=== PATIENT | female | born 1945 | race Caucasian/White ===

== ENCOUNTER → 2019-09-18 13:01 | Outpatient (BNVA) | payer MEDICARE, MEDICAID, SELFPAY | PROVIDERS: Family Provider Electrodiagnostic Medicine; PCP Family Medicine; Visit Provider Nurse Practitioner | DX: F33.0 Major depressive disorder, recurrent, mild (principal) | CPT/HCPCS: 99204 ==

== ENCOUNTER 2019-10-27 08:29 | Outpatient (CLI) | payer MEDICARE, MEDICAID, SELFPAY ==
--- NOTE | 2019-10-27 08:37 | FL_ITS ---
WS: [id number] MODIFIED BARIUM SWALLOW HISTORY: dysphagia FLUOROSCOPY TIME: 1.9 minutes. Modified barium swallow was performed by the speech pathologist. Fluoroscopy was provided with the pa tient in a lateral projection. Multiple food consistencies were provided. Patient swallowed the barium mixtures without difficulty. No aspiration or laryngeal penetration. Bar ium tablet was also swallowed without difficulty. On the lateral projection moderate size hiatal hernia was noted. FL/FL barium swallow modifd 04505 IMPRESSION: No swallowing difficulties. No aspiration or laryngeal penetration. Please see speech therapist report also for recommendations.
== END 2019-10-27 08:30 | disposition home or self-care (01) ==
LOC: RAD 08:35
PROVIDERS: Family Provider Electrodiagnostic Medicine; PCP Family Medicine; Visit Provider Electrodiagnostic Medicine
DX: R13.10 Dysphagia, unspecified (principal)
CPT/HCPCS: 74230; 92611

== ENCOUNTER 2019-10-29 09:23 | Outpatient (CLI) | payer MEDICARE, MEDICAID, SELFPAY ==
--- NOTE | 2019-10-29 09:37 | FL_ITS ---
WS: [id number] FL upper GI w air [id number] REASON FOR EXAM: DYSPHAGIA/HIATAL HERNIA W/REFLUX FLUOROSCOPY TIME: 2 minutes FINDINGS: A large paraesophageal hiatal hernia is noted. Measures 10.2 x 10.3 cm. There is no obstruction seen in the distal esophagus. The stomach showed normal appearance there is no ulcerated areas masses or obstructing lesions. The duodenal C curve and proximal small bowel are all normal. FL/FL upper GI w air [id number] IMPRESSION: A large hiatal hernia.
== END 2019-10-29 09:24 | disposition home or self-care (01) ==
LOC: RAD 09:25
PROVIDERS: Family Provider Electrodiagnostic Medicine; PCP Family Medicine; Visit Provider Electrodiagnostic Medicine
DX: K44.9 Diaphragmatic hernia without obstruction or gangrene (principal); R13.10 Dysphagia, unspecified
CPT/HCPCS: 74246

== ENCOUNTER → 2019-11-13 10:02 | Outpatient (BNVA) | payer MEDICARE, MEDICAID, SELFPAY | PROVIDERS: Family Provider Electrodiagnostic Medicine; PCP Family Medicine; Visit Provider Nurse Practitioner Psychiatric/Mental Health | DX: F33.0 Major depressive disorder, recurrent, mild (principal) | CPT/HCPCS: 99213 ==

== ENCOUNTER → 2020-03-11 07:40 | Outpatient (BNVA) | payer MEDICARE, MEDICAID, SELFPAY | PROVIDERS: Family Provider Electrodiagnostic Medicine; PCP Family Medicine; Visit Provider Nurse Practitioner Psychiatric/Mental Health | DX: F33.0 Major depressive disorder, recurrent, mild (principal) | CPT/HCPCS: 99213 ==

== ENCOUNTER 2020-07-02 14:59 | Outpatient (CLI) | payer MEDICARE, MEDICAID, SELFPAY ==
--- NOTE | 2020-07-02 15:09 | MM_ITS ---
WS: [id number] BILATERAL DIGITAL SCREENING MAMMOGRAPHY WITH CAD CLINICAL INFORMATION: SCREENING HISTORY: Screening mammogram. No current complaints. COMPARISON: TECHNIQUE: Bilateral CC and MLO views. FINDINGS: Scattered fibroglandular densities bilaterally. No suspicious focal mass, asymmetry, calcifications, or architectural distortion. No evidence of malignancy. MM/[place] [id number] IMPRESSION: BI-RADS: 1-Negative FOLLOW UP: 1 Year Follow-up Recommend return to annual screening mammography.
== END 2020-07-02 15:00 | disposition home or self-care (01) ==
LOC: RADSHAW 15:08
PROVIDERS: PCP Electrodiagnostic Medicine; Visit Provider Electrodiagnostic Medicine
DX: Z12.31 Encounter for screening mammogram for malignant neoplasm of breast (principal)
CPT/HCPCS: 77067

== ENCOUNTER 2020-07-08 09:53 | Outpatient (CLI) | payer MEDICARE, MEDICAID, SELFPAY ==
--- NOTE | 2020-07-08 10:22 | XRR_ITS ---
PROCEDURE INFORMATION: Exam: XR Right Knee Exam date and time: 07/08/2020 11:12 AM Age: 74 years old Clinical indication: Pain and injury or trauma; Fall; Blunt trauma; Knee; Right; Injury date: 1 month ago; Additional info: Accidental fall/chronic R knee pain TECHNIQUE: Imaging protocol: XR Right knee. Views: 3 views. COMPARISON: No relevant prior studies available. FINDINGS: Bones/joints: Mild degenerative changes within the medial compartment reflected as mild joint space narrowing. Mild patellofemoral degenerative changes. Possible small joint effusion. Soft tissues: Normal. XR/XR knee RT 3V* [id number] IMPRESSION: 1. Mild degenerative changes most pronounced medially 2. Mild patellofemoral degenerative changes. Possible small joint effusion. Consider MRI if indicated.
== END 2020-07-08 09:54 | disposition home or self-care (01) ==
LOC: RAD 10:18
PROVIDERS: PCP Electrodiagnostic Medicine; Visit Provider Electrodiagnostic Medicine
DX: M25.561 Pain in right knee (principal); W19.XXXA Unspecified fall, initial encounter
CPT/HCPCS: 73562

== ENCOUNTER → 2020-07-15 08:04 | Outpatient (BNVA) | payer MEDICARE, MEDICAID, SELFPAY | PROVIDERS: PCP Electrodiagnostic Medicine; Visit Provider Nurse Practitioner Psychiatric/Mental Health | DX: F33.0 Major depressive disorder, recurrent, mild (principal) | CPT/HCPCS: 99213 ==

== ENCOUNTER → 2020-11-04 08:14 | Outpatient (BNVA) | payer MEDICARE, MEDICAID, SELFPAY | PROVIDERS: PCP Electrodiagnostic Medicine; Visit Provider Nurse Practitioner Psychiatric/Mental Health | DX: F33.0 Major depressive disorder, recurrent, mild (principal) | CPT/HCPCS: 99213 ==

== ENCOUNTER → 2021-01-18 08:15 | Outpatient (BNVA) | payer MEDICARE, MEDICAID, SELFPAY | PROVIDERS: PCP Electrodiagnostic Medicine; Visit Provider Nurse Practitioner Psychiatric/Mental Health | DX: F33.0 Major depressive disorder, recurrent, mild (principal) | CPT/HCPCS: 99213 ==

== ENCOUNTER → 2021-04-11 10:07 | Outpatient (BNVA) | payer MEDICARE, MEDICAID, SELFPAY | PROVIDERS: PCP Electrodiagnostic Medicine; Referring Provider Electrodiagnostic Medicine; Visit Provider Orthopaedic Surgery | DX: M25.561 Pain in right knee (principal); M25.562 Pain in left knee; M17.0 Bilateral primary osteoarthritis of knee | CPT/HCPCS: 73560; 73565 ==

== ENCOUNTER → 2021-04-28 10:50 | Outpatient (BNVA) | payer MEDICARE, MEDICAID, SELFPAY | PROVIDERS: PCP Electrodiagnostic Medicine; Visit Provider Psychiatry & Neurology Psychiatry | DX: F33.0 Major depressive disorder, recurrent, mild (principal) | CPT/HCPCS: 99215 ==

== ENCOUNTER → 2021-06-21 11:24 | Outpatient (BNVA) | payer MEDICARE, MEDICAID, SELFPAY | PROVIDERS: PCP Electrodiagnostic Medicine; Visit Provider Psychiatry & Neurology Psychiatry | DX: F33.0 Major depressive disorder, recurrent, mild (principal) | CPT/HCPCS: 99214 ==

== ENCOUNTER → 2021-07-22 10:17 | Outpatient (BNVA) | payer MEDICARE, MEDICAID, SELFPAY | PROVIDERS: PCP Electrodiagnostic Medicine; Visit Provider Psychiatry & Neurology Psychiatry | DX: F33.0 Major depressive disorder, recurrent, mild (principal) | CPT/HCPCS: 99214 ==

== ENCOUNTER 2021-08-19 10:51 | Outpatient (CLI) | payer MEDICARE, MEDICAID, SELFPAY ==
--- NOTE | 2021-08-19 11:07 | MM_ITS ---
WS: [id number] BILATERAL SCREENING DIGITAL MAMMOGRAM WITH CAD HISTORY: SCREENING COMPARISON: 07/02/2020, 06/06/2019 and 01/05/2016 Bilateral CC and MLO views submitted. Computer aided detection analyzed. Breast composition: There are scattered areas of fibroglandular density. No suspicious masses, microc alcifications or architectural distortion. Stable asymmetries within each breast. MM/[place] [id number] IMPRESSION: BI-RADS: 2-Benign FOLLOW UP: 1 Year Follow-up
== END 2021-08-19 10:52 | disposition home or self-care (01) ==
PROVIDERS: PCP Family Medicine; Visit Provider Family Medicine
DX: Z12.31 Encounter for screening mammogram for malignant neoplasm of breast (principal)
CPT/HCPCS: 77067

== ENCOUNTER → 2022-01-19 13:56 | Outpatient (BNVA) | payer MEDICARE, MEDICAID, SELFPAY | PROVIDERS: PCP Family Medicine; Visit Provider Psychiatry & Neurology Psychiatry | DX: F33.0 Major depressive disorder, recurrent, mild (principal) | CPT/HCPCS: 99214 ==

== ENCOUNTER → 2022-05-01 14:06 | Outpatient (BNVA) | payer MEDICARE, MEDICAID, SELFPAY | PROVIDERS: PCP Family Medicine; Referring Provider Dermatology; Visit Provider Podiatrist Foot & Ankle Surgery | DX: M20.21 Hallux rigidus, right foot (principal) | CPT/HCPCS: 99203 ==

== ENCOUNTER → 2022-05-01 14:12 | Outpatient (BNVA) | payer MEDICARE, MEDICAID, SELFPAY | PROVIDERS: PCP Family Medicine; Referring Provider Dermatology; Visit Provider Podiatrist Foot & Ankle Surgery | DX: M19.071 Primary osteoarthritis, right ankle and foot (principal); M65.871 Other synovitis and tenosynovitis, right ankle and foot | CPT/HCPCS: 73630 ==

== ENCOUNTER → 2022-06-20 09:52 | Outpatient (BNVA) | payer MEDICARE, MEDICAID, SELFPAY | PROVIDERS: Visit Provider Family Medicine | DX: R05.9 Cough, unspecified; R50.9 Fever, unspecified; Z20.822 Contact with and (suspected) exposure to COVID-19 | CPT/HCPCS: 87426 ==

== ENCOUNTER → 2022-07-04 14:01 | Outpatient (BNVA) | payer MEDICARE, MEDICAID, SELFPAY | PROVIDERS: Visit Provider Podiatrist Foot & Ankle Surgery | DX: M79.671 Pain in right foot (principal) | CPT/HCPCS: 99214 ==

== ENCOUNTER 2022-07-13 07:46 | Day surgery (SDC) | payer MEDICARE, MEDICAID, SELFPAY ==
[2022-07-12 14:20] VITALS: BMI 30.9
[2022-07-13] VITALS (7 sets, daily range): BP systolic 133–183; BP diastolic 64–91; PULSE 68–75; RESP 16–18; TEMP 36.4–37.1; O2SAT 95–98
--- NOTE | 2022-07-13 | XR_ITS ---
WS: [id number] Right foot, C-arm fluoroscopy views of the distal right foot, 07/13/2022 Clinical Data: Right first metatarsophalangeal joint arthroplasty with iman Comparison: Right foot, 05/01/2022 Findings: There is an artificial joint inserted into the right great toe MTP joint. XR/XR foot RT 2V [id number] Impression: Right great toe MTP arthroplasty.
--- NOTE | 2022-07-13 | SCC_ITS ---
Procedure done: Right foot first metatarsophalangeal joint arthroplasty with Matt implant CPT 03650 37 seconds of fluoroscopic guidance, for a cumulative dose of 0.569 mGy, was provided to Dr. Smalls by the radiology department. C-arm images of the right foot were saved for the patient's permanent record. [facility]
--- NOTE | 2022-07-13 08:21 | ANES.PREANE2 ---
Pre-Anesthetic Assessment Height/Weight: Height 1.63 m Weight 81.647 kg Temp Pulse Resp BP Pulse Ox O2 Del Method 97.5 F L 70 18 183/91 98 07/13/22 08:09 07/13/22 08:09 07/13/22 08:09 07/13/22 08:09 07/13/22 08:09 07/13/22 08:13 Preop Diagnosis: Right foot hallux rigidus Operation Date: 07/13/22 09:35 Proposed Procedures p Right first metatarsophalangeal joint arthroplasty with iman-implant CPT 56025,M20.21(Right) - Khoa Smalls DPM Familial anesthetic complications: none Was Beta Austin taken within 24 hours: N/A Was Clonidine taken within 24 hours: N/A Last intake: Intake Last Liquid Date 07/12/22 Last Liquid Time 18:00 Last Solid Date 07/12/22 Last Solid Time 18:00 Social No alcohol and No tobacco Exam alert, oriented x 3, clear to auscultation bilaterally and regular rate & rhythm Airway Mallampati: Class II Dentition: full Pulmonary covid last month GI Gastroesophageal Reflux Disease and Hiatal Hernia Gerd only with food - not currently experiencing any GERD Metabolic Thyroid Disease Anesthetic Plan ASA status: 2 Anesthesia: MAC Risk of > 500 ml blood loss (7ml/kg in children): No Medications/Allergies Home Medications Medication Instructions Recorded Confirmed Last Taken Type aspirin 81 mg tablet,delayed 81 mg PO ONCE 09/18/19 07/13/22 07/12/22 History release (Aspir-) celecoxib 100 mg capsule 100 mg PO BID 04/28/21 07/13/22 07/13/22 History levothyroxine 50 mcg capsule 50 mcg PO DAILY 04/28/21 07/13/22 07/13/22 History fluoxetine 20 mg capsule 20 mg PO DAILY 90 days #90 caps 01/30/22 07/13/22 07/12/22 Rx esomeprazole magnesium 40 mg 40 mg PO BID #180 caps 06/20/22 07/13/22 07/12/22 Rx capsule,delayed release (Nexium) alprazolam 1 mg tablet 1 mg PO .qhs 30 days #30 tabs 06/29/22 07/13/22 07/12/22 Rx acetaminophen 325 mg capsule 1,300 mg PO BID 07/12/22 07/13/22 07/12/22 History (Tylenol) amlodipine 10 mg tablet (Norvasc) 20 mg PO DAILY 07/12/22 07/13/22 07/12/22 History conj estrogen-medroxyprogesterone 1 tab PO DAILY 07/12/22 07/13/22 07/12/22 History 0.45 mg-1.5 mg tablet (Prempro) doxepin 10 mg capsule 20 mg PO DAILY 07/12/22 07/13/22 07/12/22 History Allergies Allergy/AdvReac Type Severity Reaction Status Date / Time pantoprazole [From Protonix] Allergy Unknown itching Verified 07/12/22 14:14 clindamycin Allergy Unknown Verified 07/12/22 14:14 [facility] Anesthesia Medical History (Updated 07/11/22 @ 11:20 by Carlota Del Valle DO) Benign essential HTN JESENIA (generalized anxiety disorder) Goes to [facility] History of gastroesophageal reflux (GERD) Underwent Lynx procedure with Dr. Eugene Ludwig at [facility]. History of hiatal hernia Repaired Hypothyroidism Major depressive disorder, recurrent, mild Psychiatric care Surgical History History of tubal ligation Family History Father CAD (coronary artery disease) Mother CAD (coronary artery disease) Brother CAD (coronary artery disease) Sister CAD (coronary artery disease) Other Hypertension Denies family history of Diabetes Clotting disorder Dementia Hyperlipidemia Psychiatric illness Chronic kidney disease (CKD) Suicide Anesthesia complication Bleeding disorder Family history of premature coronary artery disease Lung disease Cancer Stroke Social History Smoking and tobacco status: former smoker Data Anesthesia Cardiac Studies: No Data to Display
[2022-07-13] MEDS: CELEcoxib 200 mg Capsule 400 MG PO (08:42)
[2022-07-13] MEDS: gabapentin 300 mg Capsule PO (08:43)
[2022-07-13] MEDS: sodium chloride 0.9% 1,000 ML 30 ML IV (08:44)
--- NOTE | 2022-07-13 09:52 | W.PM.OPSUD ---
Surgery/Procedure H&P Update DATE OF PROCEDURE: July 13, 2022 DATE H&P PERFORMED: 07/04/22 CHANGES TO PREVIOUS DOCUMENTATION: No changes to previous documentation PREOP DIAGNOSIS: Right foot hallux rigidus PRIMARY INDICATION FOR PROCEDURE: Right foot hallux rigidus PLANNED PROCEDURE: Operation Date: 07/13/22 09:35 Proposed Procedures p Right first metatarsophalangeal joint arthroplasty with iman-implant CPT 68405,M20.21(Right) - Khoa Smalls DPM
[2022-07-13] MEDS: ceFAZolin 2,000 MG in sodium chloride 0.9% (plus) 50 ML 100 MG IV (10:13)
--- NOTE | 2022-07-13 13:37 | ANE.PACU2 ---
Inpatient post-anesthesia follow up: Airway intact: Yes Vital signs: Temperature 97.7 F Pulse Rate 70 Respiratory Rate 18 Blood Pressure 141/73 Pulse Oximetry 95 Oxygen Delivery Me thod Room Air Oxygen Flow Rate 6 Fraction of Inspir ed Oxygen Hydration adequate: Yes Nausea and vomiting: No Pain level: 1 Mental status: Baseline
--- NOTE | 2022-07-13 15:08 | PM.OP ---
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 Khoa Smalls, D.P.M. Estimated blood loss: 5 cc 46 minutes Complications: None Findings: See above Brief History: Patient has history of right hallux rigidus. She has attempted conservative treatment options and has opted for surgical intervention at this time Procedure: Patient is a 76-year-old female that has a history of right hallux rigidus. The patient has had the aforementioned chief complaint for some time. Conservative treatment measures have been attempted and the patient has opted for surgical intervention at thistime. A lengthy discussion regarding the procedure, including risks and complications has been had with the patient and is noted in the recent clinic note. Written and verbal consent have been obtained. All patient questions have been answered to the patient?s satisfaction. No written or verbal guarantees have been given or implied. The patient has been NPO since midnight. The history has been reviewed and the history and physical is current. The signed consent was confirmed and placed in the patient chart. Patient imaging has been reviewed and is consistent with thediagnosis. Under mild sedation, the patient was brought into the operating room and placed on the table in the supine position. IV antibiotics were given by the anesthesia team as preoperative surgical prophylaxis. IV sedation was then performed by the anesthesia team. The right foot was anesthetized using 30 cc of 0.5% Marcaine plain. A pneumatic tourniquet was then placed about the right ankle. The operative extremity was then prepped and draped in the usual fashion. The extremity was then elevated and exsanguinated before the tourniquet was inflated to 250 mmHg. After inflation, the following procedure was then performed. Attention was directed to the right foot where a 7 cm incision was made dorsal medial over the first metatarsophalangeal joint. Dissection was carried down through subcutaneous and superficial fascia to the level of the first metatarsal phalangeal joint capsule. Any bleeders were cauterized as necessary during dissection. The extensor hallucis longus tendon was identified and retracted laterally before the capsule was incised down to bone using #15 blade. Dissection was carried out to expose the first metatarsophalangeal joint in its entirety. There is noted to be significant periarticular spurring on the dorsal aspect of the first metatarsal as well as laterally at the first metatarsophalangeal joint. Using a rongeur these osteophytes were removed. Sagittal bone saw was then used to perform a cheilectomy of the first metatarsal head in standard fashion. The head of the first metatarsal was further contoured using a rongeur to remove any rough spots. Next, a sagittal bone saw was used to remove the base of the proximal phalanx thus removing the articular cartilage in preparation for the Matt implant. The site was irrigated with copious muscle sterile saline at this point. Patient's bone quality was noted to be healthy at this point. No subchondral cysts were visualized. The trial sizer was placed over the base the proximal phalanx and it was decided that a size 2 would be the most appropriate implant size for the patient. A K wire was driven through the hole in the trial sizer before a reamer was used to ream the base the proximal phalanx. The broach was then used to broach the base the proximal phalanx before the trial sizer implant was implanted into the base the proximal phalanx. Good range of motion of the first metatarsophalangeal joint was noted with adequate dorsiflexion and plantarflexion. This was much improved in comparison to the preoperative range of motion. The trial sizer was removed and a titanium Matt implant size 2 from [employer] was inserted into the base the proximal phalanx. It was malleted down to the appropriate position. This was confirmed on C-arm imaging as well as clinically. Good range of motion of the first metatarsophalangeal joint was noted. Site was irrigated with copious muscle sterile saline before attention was directed to closure. Deep tissue was closed with 3-0 Vicryl including capsular closure followed by 4-0 Vicryl subcuticular closure and skin closure with 4-0 nylon in horizontal mattress fashion. The incision site was further anesthetized with 10 cc of Exparel. The tourniquet was let down good hyperemic response was noted to all digits of the right foot the incision was dressed with Xeroform 4 x 4 gauze Kerlix and Chase bandage. The patient tolerated the procedure and anesthesia well and without complication. The patient was transported from the operating room to the recovery room with vital signs stable and vascular status intact to all digits of the right foot. The patient was given both written and verbal instructions to remain weightbearing as tolerated to the operative extremity, to keep dressings clean, dry and intact and to take pain medication as directed. The patient will follow-up in the outpatient setting at their scheduled appointment. The patient was discharged with my personal number and was instructed to call if any questions or issues should arise. They were discharged home once anesthesia criteria was met.
== END 2022-07-13 12:29 | disposition home or self-care (01) ==
PROVIDERS: PCP Family Medicine; Visit Provider Podiatrist Foot & Ankle Surgery
PROC: (CPT 28291; principal; 2022-07-13 09:25)
DX: M20.21 Hallux rigidus, right foot (principal); K21.9 Gastro-esophageal reflux disease without esophagitis; Z79.82 Long term (current) use of aspirin; I10 Essential (primary) hypertension; F41.9 Anxiety disorder, unspecified; E03.9 Hypothyroidism, unspecified; Z87.891 Personal history of nicotine dependence
CPT/HCPCS: 28291; 73620; 76000; C1776; C9290; J0690; J2704; J3010; J3490; J7030

== ENCOUNTER → 2022-07-19 13:53 | Outpatient (BNVA) | payer MEDICARE, MEDICAID, SELFPAY | PROVIDERS: PCP Family Medicine; Visit Provider Podiatrist Foot & Ankle Surgery | DX: Z98.890 Other specified postprocedural states (principal); M20.21 Hallux rigidus, right foot | CPT/HCPCS: 73630; 99024 ==

== ENCOUNTER → 2022-08-08 08:55 | Outpatient (BNVA) | payer MEDICARE, MEDICAID, SELFPAY | PROVIDERS: PCP Family Medicine; Visit Provider Family Medicine | DX: E03.9 Hypothyroidism, unspecified (principal); I10 Essential (primary) hypertension | CPT/HCPCS: 84439; 84443 ==

== ENCOUNTER 2022-08-09 10:20 | Outpatient (CLI) | payer MEDICARE, MEDICAID, SELFPAY | END 2022-08-09 10:21 | disposition home or self-care (01) | LOC: RAD 08-10 14:02 | PROVIDERS: PCP Family Medicine; Visit Provider Podiatrist Foot & Ankle Surgery | DX: M79.671 Pain in right foot (principal); Z98.890 Other specified postprocedural states | CPT/HCPCS: 73630; 99024 ==

== ENCOUNTER 2022-09-05 08:21 | Outpatient (CLI) | payer MEDICARE, MEDICAID, SELFPAY ==
--- NOTE | 2022-09-05 08:31 | MM_ITS ---
WS: [id number] SCREENING DIGITAL TOMOSYNTHESIS MAMMOGRAM WITH CAD HISTORY: Screening exam. COMPARISON: 08/19/2021 and 07/02/2020 Bilateral CC and MLO with tomosynthesis views submitted. Synthetic mammography reviewed. Computer aid ed detection analyzed. Breast composition: There are scattered areas of fibroglandular density. No suspicious masses, microc alcifications or architectural distortion. MM/[place] [id number] IMPRESSION: BI-RADS: 1-Negative FOLLOW UP: 1 Year Follow-up
== END 2022-09-05 08:22 | disposition home or self-care (01) ==
LOC: RAD 08:23
PROVIDERS: PCP Family Medicine; Visit Provider Obstetrics & Gynecology
DX: Z12.31 Encounter for screening mammogram for malignant neoplasm of breast (principal); Z98.890 Other specified postprocedural states; M20.21 Hallux rigidus, right foot
CPT/HCPCS: 73630; 77063; 77067; 99024

== ENCOUNTER → 2022-10-13 13:28 | Outpatient (BNVA) | payer MEDICARE, MEDICAID, SELFPAY | PROVIDERS: PCP Family Medicine; Referring Provider Family Medicine; Visit Provider Student in an Organized Health Care Education/Training Program | DX: M17.0 Bilateral primary osteoarthritis of knee (principal) | CPT/HCPCS: 20610; 73560; 73565; 99204; J3301 ==

== ENCOUNTER → 2022-11-03 14:07 | Outpatient (BNVA) | payer MEDICARE, MEDICAID, SELFPAY | PROVIDERS: PCP Family Medicine; Visit Provider Family Medicine | DX: R10.9 Unspecified abdominal pain (principal) | CPT/HCPCS: 81000 ==

== ENCOUNTER → 2022-12-08 13:06 | Outpatient (BNVA) | payer MEDICARE, MEDICAID, SELFPAY | PROVIDERS: PCP Family Medicine; Visit Provider Student in an Organized Health Care Education/Training Program | DX: M17.0 Bilateral primary osteoarthritis of knee (principal) | CPT/HCPCS: 99213 ==

== ENCOUNTER → 2022-12-14 09:45 | Outpatient (BNVA) | payer MEDICARE, MEDICAID, OTHER, SELFPAY | PROVIDERS: PCP Family Medicine; Visit Provider Family Medicine | DX: D50.9 Iron deficiency anemia, unspecified (principal); E53.8 Deficiency of other specified B group vitamins; R53.83 Other fatigue; Z86.2 Personal history of diseases of the blood and blood-forming organs and certain disorders involving the immune mechanism; I10 Essential (primary) hypertension; E03.9 Hypothyroidism, unspecified | CPT/HCPCS: 80053; 80061; 82043; 82607; 82728; 83550; 84439; 84443; 85025 ==

== ENCOUNTER 2023-01-15 20:00 | Outpatient (CLI) | payer MEDICARE, MEDICAID, SELFPAY | END 2023-01-15 20:01 | disposition home or self-care (01) | LOC: SLEEP 01-16 06:10 | PROVIDERS: PCP Family Medicine; Visit Provider Family Medicine | DX: G47.10 Hypersomnia, unspecified (principal); R09.02 Hypoxemia | CPT/HCPCS: 95810 ==

== ENCOUNTER → 2023-01-25 12:35 | Outpatient (BNVA) | payer MEDICARE, MEDICAID, SELFPAY | PROVIDERS: PCP Family Medicine; Visit Provider Student in an Organized Health Care Education/Training Program | DX: M17.0 Bilateral primary osteoarthritis of knee (principal) | CPT/HCPCS: 20610; 73560; 73565; 99213; J1040 ==

== ENCOUNTER → 2023-01-29 12:45 | Outpatient (BNVA) | payer MEDICARE, MEDICAID, SELFPAY | PROVIDERS: PCP Family Medicine; Visit Provider Family Medicine | DX: R53.83 Other fatigue (principal); E03.9 Hypothyroidism, unspecified | CPT/HCPCS: 80048 ==

== ENCOUNTER → 2023-02-06 10:46 | Outpatient (BNVA) | payer MEDICARE, MEDICAID, SELFPAY | PROVIDERS: PCP Family Medicine; Visit Provider Family Medicine | DX: E87.6 Hypokalemia (principal); E16.2 Hypoglycemia, unspecified | CPT/HCPCS: 80048; 82962; 83735 ==

== ENCOUNTER → 2023-05-15 15:22 | Outpatient (BNVA) | payer MEDICARE, OTHER, SELFPAY | PROVIDERS: PCP Family Medicine; Visit Provider Family Medicine | DX: E87.6 Hypokalemia (principal) | CPT/HCPCS: 80053 ==

== ENCOUNTER → 2023-05-24 13:05 | Outpatient (BNVA) | payer MEDICARE, MEDICAID, SELFPAY | PROVIDERS: PCP Family Medicine; Visit Provider Physician Assistant | DX: M17.0 Bilateral primary osteoarthritis of knee | CPT/HCPCS: 20610; 99213; J3301 ==

== ENCOUNTER → 2023-06-03 13:34 | Outpatient (BNVA) | payer MEDICARE, MEDICAID, SELFPAY | PROVIDERS: PCP Family Medicine; Visit Provider Emergency Medicine | DX: R39.9 Unspecified symptoms and signs involving the genitourinary system (principal); N39.0 Urinary tract infection, site not specified; N10 Acute pyelonephritis | CPT/HCPCS: 81000; 87077; 87086; 87184 ==

== ENCOUNTER 2023-09-06 13:43 | Outpatient (CLI) | payer MEDICARE, MEDICAID, SELFPAY ==
--- NOTE | 2023-09-06 14:01 | MM_ITS ---
WS: [id number] BILATERAL 3D TOMOSYNTHESIS DIGITAL SCREENING MAMMOGRAPHY WITH CAD CLINICAL INFORMATION: SCREENING HISTORY: Screening mammogram. No current complaints. COMPARISON: 2021 TECHNIQUE: Bilateral CC and MLO views. FINDINGS: Scattered fibroglandular densities bilaterally. No suspicious focal mass, asymmetry, calcifications, or architectural distortion. No evidence of malignancy. A few tiny incidental punctate calcifications . Vascular calcification. IMPRESSION: MM/[place] [id number] BI-RADS: 2-Benign FOLLOW UP: 1 Year Follow-up Recommend return to annual screening mammography.
== END 2023-09-06 13:44 | disposition home or self-care (01) ==
LOC: RAD 13:43
PROVIDERS: PCP Family Medicine; Visit Provider Family Medicine
DX: Z12.31 Encounter for screening mammogram for malignant neoplasm of breast (principal)
CPT/HCPCS: 77063; 77067

== ENCOUNTER → 2023-11-08 10:19 | Outpatient (BNVA) | payer MEDICARE, MEDICAID, SELFPAY | PROVIDERS: PCP Family Medicine; Visit Provider Student in an Organized Health Care Education/Training Program | DX: M17.0 Bilateral primary osteoarthritis of knee | CPT/HCPCS: 20610; 99213; J3301 ==

== ENCOUNTER → 2023-11-27 12:55 | Outpatient (BNVA) | payer MEDICARE, MEDICAID, SELFPAY | PROVIDERS: PCP Family Medicine; Referring Provider Family Medicine; Visit Provider Surgery | DX: R13.10 Dysphagia, unspecified (principal) | CPT/HCPCS: 99204 ==

== ENCOUNTER 2023-12-24 08:55 | Outpatient (CLI) | payer MEDICARE, MEDICAID, SELFPAY ==
--- NOTE | 2023-12-24 09:15 | FL_ITS ---
WS: [id number] Exam: FL barium swallow [id number] Date/Time of Exam: 12/24/2023 8:59 AM Reason For Exam: Fluoroscopy time: 1min [id number] minutes # of spot films: 4 Oropharyngeal phase of swallowing was normal. No indication of esophageal mass or stricture. Signs of previous hiatal hernia repair with ring in place at the GE junction. The repair appears to be intact . Mild tertiary spasm of the lower esophagus. The esophagus is not displaced. Esophageal motility was otherwise normal. No reflux observed. IMPRESSION: 1. Tertiary spasm of the lower one third of the esophagus. 2. No sign of intrinsic esophageal mass or stricture. 3. Intact hiatal hernia repair with ring placement at the GE junction. No reflux noted.
== END 2023-12-24 08:56 | disposition home or self-care (01) ==
LOC: RAD 08:57
PROVIDERS: PCP Family Medicine; Visit Provider Surgery
DX: R13.10 Dysphagia, unspecified (principal)
CPT/HCPCS: 74220

== ENCOUNTER 2024-01-22 10:40 | Day surgery (SDC) | payer MEDICARE, MEDICAID, SELFPAY ==
[2024-01-22 11:07] VITALS: BP 163/88; PULSE 75; RESP 18; TEMP 36.6; O2SAT 98; BMI 29.7
[2024-01-22] MEDS: sodium chloride 0.9% 1,000 ML 30 ML IV (11:10)
--- NOTE | 2024-01-22 11:18 | ANES.PREANE2 ---
Pre-Anesthetic Assessment Height/Weight: Height 1.63 m Weight 78.471 kg Temp Pulse Resp BP Pulse Ox O2 Del Method 97.9 F 75 18 163/88 98 Room Air 01/22/24 11:07 01/22/24 11:07 01/22/24 11:07 01/22/24 11:07 01/22/24 11:07 01/22/24 11:07 Operation Date: 01/22/24 11:45 Proposed Procedures p EGD WITH POSS BALLOON DIL 81201 R13.10(Not Applicable) - Khoa Staples MD Last intake: Intake Last Liquid Date 01/21/24 Last Liquid Time 20:00 Last Solid Date 01/21/24 Last Solid Time 18:00 Social No tobacco Exam alert, oriented x 3, clear to auscultation bilaterally and regular rate & rhythm Airway Submandibular: within normal limits Cervical ROM: within normal limits Mallampati: Class I Pulmonary None reported CV/HEM Hypertension None reported Hepatic None reported GI Hiatal Hernia Metabolic Diabetes Mellitus and Thyroid Disease Anesthetic Plan ASA status: 3 Anesthesia: MAC Risk of > 500 ml blood loss (7ml/kg in children): No Medications/Allergies Home Medications Medication Instructions Recorded Confirmed Last Taken Type aspirin 81 mg tablet,delayed 81 mg PO DAILY 09/18/19 01/22/24 01/21/24 History release (Aspir-) levothyroxine 50 mcg tablet 50 mcg PO DAILY #90 tabs 01/03/23 01/22/24 01/22/24 Rx one touch verio test strips #100 ea 02/07/23 01/10/24 Unknown Rx one touch verio lancets #100 ea 02/09/23 01/10/24 Unknown Rx celecoxib 100 mg capsule 100 mg PO BID #180 caps 03/21/23 01/22/24 01/21/24 Rx esomeprazole magnesium 40 mg 40 mg PO BID #180 caps 04/05/23 01/22/24 01/21/24 Rx capsule,delayed release (Nexium) amlodipine 10 mg tablet (Norvasc) 10 mg PO DAILY #100 tabs 05/18/23 01/22/24 01/22/24 Rx conj estrogen-medroxyprogesterone 1 tab PO DAILY #90 tabs 07/06/23 01/22/24 01/21/24 Rx 0.45 mg-1.5 mg tablet (Prempro) fluoxetine 20 mg capsule 20 mg PO DAILY 90 days #90 caps 08/13/23 01/22/24 01/21/24 Rx alprazolam 1 mg tablet 1 mg PO .qhs 30 days #30 tabs 09/16/23 01/22/24 01/21/24 Rx mirtazapine 30 mg tablet 30 mg PO .qhs 90 days #90 tabs 11/29/23 01/22/24 01/21/24 Rx doxepin 10 mg capsule 20 mg (2 x 10 mg) PO DAILY #60 caps 12/19/23 01/22/24 01/21/24 Rx graviola 1 tab PO DAILY 01/10/24 01/22/24 01/21/24 History chlorhexidine gluconate 0.12 % 1 applic PO BID 01/18/24 01/22/24 01/22/24 History mouthwash nystatin 5 mg PO TID 01/18/24 01/22/24 01/21/24 History Allergies Allergy/AdvReac Type Severity Reaction Status Date / Time pantoprazole [From Protonix] Allergy Unknown itching Verified 01/22/24 11:03 clindamycin Allergy Unknown Verified 01/22/24 11:03 losartan Allergy ADR-Itching Verified 01/22/24 11:03 [facility] Anesthesia Medical History History of gastroesophageal reflux (GERD) Underwent Lynx procedure with Dr. Eugene Ludwig at [facility]. JESENIA (generalized anxiety disorder) Goes to [facility] History of hiatal hernia Repaired Hypothyroidism Benign essential HTN Psychiatric care Major depressive disorder, recurrent, mild Surgical History History of tubal ligation Family History Father CAD (coronary artery disease) Mother CAD (coronary artery disease) Brother CAD (coronary artery disease) Sister CAD (coronary artery disease) Other Hypertension Denies family history of Diabetes Clotting disorder Dementia Hyperlipidemia Psychiatric illness Chronic kidney disease (CKD) Suicide Anesthesia complication Bleeding disorder Family history of premature coronary artery disease Lung disease Cancer Stroke Social History Smoking and tobacco/nicotine status: former use of tobacco/nicotine Alcohol intake: never Substance/Drug Use: never Data Anesthesia Cardiac Studies: No Data to Display
--- NOTE | 2024-01-22 11:25 | W.PM.OPSFHP ---
Same Day Surgery H&P Indication for Procedure/HPI DATE OF PROCEDURE: January 22, 2024 CHIEF COMPLAINT/INDICATIONFOR SURGICAL PROCEDURE: dysphagia PREOP DIAGNOSIS: hiatal hernia PLANNED PROCEDURE: Operation Date: 01/22/24 11:45 Proposed Procedures p EGD WITH POSS BALLOON DIL 61884 R13.10(Not Applicable) - Khoa Staples MD Medications/Allergies* Home Medications Medication Instructions Recorded Confirmed Type aspirin 81 mg tablet,delayed 81 mg PO DAILY 09/18/19 01/22/24 History release (Aspir-) graviola 1 tab PO DAILY 01/10/24 01/22/24 History chlorhexidine gluconate 0.12 % 1 applic PO BID 01/18/24 01/22/24 History mouthwash nystatin 5 mg PO TID 01/18/24 01/22/24 History Allergies/Adverse Reactions Allergy/AdvReac Type Severity Reaction Status Date / Time pantoprazole [From Protonix] Allergy Unknown itching Verified 01/22/24 11:03 clindamycin Allergy Unknown Verified 01/22/24 11:03 losartan Allergy ADR-Itching Verified 01/22/24 11:03 Pertinent History/Comorbid Conditions* Medical History (Updated 09/13/23 @ 14:41 by Honey Husain MD) History of gastroesophageal reflux (GERD) Underwent Lynx procedure with Dr. Eugene Ludwig at [facility]. JESENIA (generalized anxiety disorder) Goes to [facility] History of hiatal hernia Repaired Hypothyroidism Benign essential HTN Psychiatric care Major depressive disorder, recurrent, mild Surgical History (Updated 06/20/22 @ 09:16 by Carlota Del Valle DO) History of tubal ligation Family History (Updated 05/31/21 @ 14:12 by Rosalva Fairbanks LPN) CAD (coronary artery disease) Father Mother Brother Sister Hypertension Denies family history of Diabetes Clotting disorder Dementia Hyperlipidemia Psychiatric illness Chronic kidney disease (CKD) Suicide Anesthesia complication Bleeding disorder Family history of premature coronary artery disease Lung disease Cancer Stroke Social History Smoking and tobacco/nicotine status: former use of tobacco/nicotine Alcohol intake: never Substance/Drug Use: never Pertinent Exam Findings alert, oriented x 3, clear to auscultation bilaterally and regular rate & rhythm Recommendations Surgery/Procedure today Coding Level of Care Code Acute Code for Chg Fwd
[2024-01-22 11:45] VITALS: BP 135/70; PULSE 78; RESP 18; TEMP 36.6; O2SAT 90
[2024-01-22 11:52] VITALS: BP 144/77; PULSE 73; RESP 18; O2SAT 94
[2024-01-22 11:57] VITALS: BP 144/80; PULSE 71; RESP 18; O2SAT 93
--- NOTE | 2024-01-22 13:41 | P.ANESPOST_ITS ---
Inpatient post-anesthesia follow up: Vital signs: Temperature 97.8 F Pulse Rate 71 Respiratory Rate 18 Blood Pressure 144/80 Pulse Oximetry 93 Oxygen Delivery Me thod Room Air Oxygen Flow Rate Fraction of Inspir ed Oxygen Hydration adequate: Yes Nausea and vomiting: No Pain level: con trolled Mental status: Baseline Additional Comments: no apparent anesthetic complications noted
== END 2024-01-22 12:22 | disposition home or self-care (01) ==
PROVIDERS: PCP Family Medicine; Visit Provider Surgery
PROC: 0DJ08ZZ Inspection of Upper Intestinal Tract, Via Natural or Artificial Opening Endoscopic (ICD-10-PCS; CPT 43235; principal; 2024-01-22 11:45)
DX: R13.10 Dysphagia, unspecified (principal); K21.9 Gastro-esophageal reflux disease without esophagitis; I10 Essential (primary) hypertension; E11.9 Type 2 diabetes mellitus without complications; Z79.82 Long term (current) use of aspirin; E03.9 Hypothyroidism, unspecified; Z87.891 Personal history of nicotine dependence
CPT/HCPCS: 43239; 88305; 88342; J2704; J7030

== ENCOUNTER → 2024-02-05 08:54 | Outpatient (BNVA) | payer MEDICARE, MEDICAID, SELFPAY | PROVIDERS: PCP Family Medicine; Visit Provider Surgery | DX: Z09 Encounter for follow-up examination after completed treatment for conditions other than malignant neoplasm (principal) | CPT/HCPCS: 99213 ==

== ENCOUNTER 2024-02-11 13:51 | Outpatient (CLI) | payer MEDICARE, MEDICAID, SELFPAY ==
--- NOTE | 2024-02-11 13:58 | USCV_ITS ---
Sera Chirag Caitlyn Age: 78 Gender: F : 1945 Exam Date: 02/11/2024 14:22 Ordering Phys: Scott Shetty MD Technologist: KACY Exam Location: [facility] [place] Indication: FATIGUE BP: 144 / 81 HR: 73 Rhythm: Sinus Technical Quality: Adequate MEASUREMENTS (Male / Female) Normal Values 2D ECHO LV Diastolic Diameter PLAX 4.2 cm 4.2 - 5.9 / 3.9 - 5.3 cm IVS Diastolic Thickness 1.1 cm 0.6 - 1.0 / 0.6 - 0.9 cm IVS Systolic Thickness 1.3 cm LVPW Diastolic Thickness 1.6 cm 0.6 - 1.0 / 0.6 - 0.9 cm LVPW Systolic Thickness 1.6 cm LVOT Diameter 2.0 cm LV Ejection Fraction 2D Teich 65.8 % LV Ejection Fraction MOD 2C 58.6 % LV Ejection Fraction 2C AL 61.7 % LA Diameter 3.4 cm RA Systolic Volume 4C AL 20.3 ml RA Systolic Volume 4C MOD 19.6 ml LA Sys Volume AL 31.9 cm cubed LA Sys Volume Index AL 16.7 cm cubed/m squared Aorta at Sinotubular Diameter 2.1 cm IVC Diameter 1.6 cm M-MODE LA Ao Ratio MM 1.2 AV Cusp Separation MM 1.6 cm DOPPLER AV Peak Velocity 129.0 cm/s LVOT Peak Velocity 113.0 cm/s AV Area Cont Eq vti 3.1 cm squared AV Area Cont Eq pk 2.6 cm squared MV Peak Velocity 95.0 cm/s MV Area PHT 2.9 cm squared Mitral E to A Ratio 0.9 TR Peak Velocity 186.0 cm/s TR Peak Gradient 13.8 mmHg TR Mean Velocity 156.0 cm/s TR Mean Gradient 10.5 mmHg TR Velocity Time Integral 51.0 cm TV Peak E Velocity 37.0 cm/s Right Atrial Pressure 3.0 mmHg Pulmonary Artery Systolic Pressu 16.8 mmHg PV Peak Velocity 99.0 cm/s RV Ejection Time 0.3 s FINDINGS Left Ventricle Left ventricle is normal size. LV systolic function is normal with EF 55 to 60%. No regional wall motion abnormalities are seen. Grade 1 diastolic dysfunction Right Ventricle Normal in size and function. Right Atrium Normal in size. Left Atrium Normal in size. Mitral Valve Structurally normal mitral valve. Mild mitral regurgitation. Aortic Valve Structurally normal aortic valve. No significant stenosis or regurgitation Tricuspid Valve Insufficient TR jet to calculate RVSP. Pulmonic Valve Trace pulmonic regurgitation Pericardium Normal Aorta Normal in size IVC Appears to be normal CONCLUSIONS LV systolic function is normal with EF of 55-60% Grade 1 diastolic dysfunction Mild mitral regurgitation Trace pulmonic regurgitation No comparison studies are available. Srini Bruno MD (Electronically Signed) Final Date: 22 February 2024 19:37 S
== END 2024-02-11 13:52 | disposition home or self-care (01) ==
LOC: RAD 13:51
PROVIDERS: PCP Family Medicine; Visit Provider Family Medicine
DX: I50.30 Unspecified diastolic (congestive) heart failure (principal)
CPT/HCPCS: 93306

== ENCOUNTER → 2024-02-12 09:44 | Outpatient (BNVA) | payer MEDICARE, MEDICAID, SELFPAY | PROVIDERS: PCP Family Medicine; Visit Provider Student in an Organized Health Care Education/Training Program | DX: M17.0 Bilateral primary osteoarthritis of knee (principal) | CPT/HCPCS: 20610; 99213; J3301 ==

== ENCOUNTER → 2024-04-23 09:31 | Outpatient (BNVA) | payer MEDICARE, MEDICAID, SELFPAY | PROVIDERS: PCP Family Medicine; Referring Provider Family Medicine; Visit Provider Internal Medicine | DX: E16.2 Hypoglycemia, unspecified (principal); E03.9 Hypothyroidism, unspecified; R63.4 Abnormal weight loss; Z79.890 Hormone replacement therapy; Z68.28 Body mass index [BMI] 28.0-28.9, adult | CPT/HCPCS: 99204 ==

== ENCOUNTER 2024-04-30 07:46 | Outpatient (CLI) | payer MEDICARE, MEDICAID, SELFPAY ==
[2024-04-30 09:23] LABS: Cortisol Random 6.39 ug/dL (2.47-19.5)
== END 2024-04-30 07:47 | disposition home or self-care (01) ==
LOC: LAB 07:48
PROVIDERS: PCP Family Medicine; Visit Provider Internal Medicine
DX: E16.2 Hypoglycemia, unspecified (principal); E03.9 Hypothyroidism, unspecified; R63.4 Abnormal weight loss
CPT/HCPCS: 36415; 82533

== ENCOUNTER → 2024-05-08 08:53 | Outpatient (BNVA) | payer MEDICARE, MEDICAID, SELFPAY | PROVIDERS: PCP Family Medicine; Visit Provider Internal Medicine | DX: E16.2 Hypoglycemia, unspecified (principal); E03.9 Hypothyroidism, unspecified; R63.4 Abnormal weight loss; Z79.890 Hormone replacement therapy; Z68.29 Body mass index [BMI] 29.0-29.9, adult | CPT/HCPCS: 99214 ==

== ENCOUNTER → 2024-05-16 10:49 | Outpatient (BNVA) | payer MEDICARE, MEDICAID, SELFPAY | PROVIDERS: PCP Family Medicine; Visit Provider Student in an Organized Health Care Education/Training Program | DX: M17.0 Bilateral primary osteoarthritis of knee | CPT/HCPCS: 20610; 99213; J3301 ==

== ENCOUNTER → 2024-06-18 10:54 | Outpatient (BNVA) | payer MEDICARE, SELFPAY | PROVIDERS: PCP Family Medicine; Visit Provider Internal Medicine | DX: E16.2 Hypoglycemia, unspecified (principal); E03.9 Hypothyroidism, unspecified; R63.4 Abnormal weight loss; Z79.890 Hormone replacement therapy; Z68.29 Body mass index [BMI] 29.0-29.9, adult | CPT/HCPCS: 99214 ==

== ENCOUNTER → 2024-08-19 09:45 | Outpatient (BNVA) | payer MEDICARE, MEDICAID, SELFPAY | PROVIDERS: PCP Family Medicine; Visit Provider Student in an Organized Health Care Education/Training Program | DX: M17.0 Bilateral primary osteoarthritis of knee (principal) | CPT/HCPCS: 20610; 99213; J3301 ==

== ENCOUNTER 2024-09-08 15:02 | Outpatient (CLI) | payer MEDICARE, MEDICAID, SELFPAY ==
--- NOTE | 2024-09-08 15:06 | MM_ITS ---
WS: [id number] BILATERAL 3D TOMOSYNTHESIS DIGITAL SCREENING MAMMOGRAPHY WITH CAD CLINICAL INFORMATION: SCREENING HISTORY: Screening mammogram. No current complaints. COMPARISON: 2022. TECHNIQUE: Bilateral CC and MLO views. FINDINGS: Scattered fibroglandular densities bilaterally. No suspicious focal mass, asymmetry, calcifications, or architectural distortion. No evidence of malignancy. Incidental punctate calcifications. Vascular calcifications. MM/MM scr tomosynthesis [id number] IMPRESSION: DENSITY: There are scattered areas of fibroglandular density. BI-RADS: 2 - Benign. FOLLOW UP: 1 Year Follow-up Recommend return to annual screening mammography.
== END 2024-09-08 15:03 | disposition home or self-care (01) ==
PROVIDERS: PCP Family Medicine; Visit Provider Family Medicine
DX: Z12.31 Encounter for screening mammogram for malignant neoplasm of breast (principal); R92.1 Mammographic calcification found on diagnostic imaging of breast
CPT/HCPCS: 77063; 77067

== ENCOUNTER → 2024-11-25 08:27 | Outpatient (BNVA) | payer MEDICARE, MEDICAID, SELFPAY | PROVIDERS: PCP Family Medicine; Visit Provider Student in an Organized Health Care Education/Training Program | DX: M17.0 Bilateral primary osteoarthritis of knee (principal) | CPT/HCPCS: 73560; 73565; 99214 ==

== ENCOUNTER 2024-12-11 16:00 | Outpatient (CLI) | payer MEDICARE, MEDICAID, SELFPAY ==
--- NOTE | 2024-12-11 16:30 | CT_ITS ---
WS: [id number] CT LEFT KNEE, NONCONTRAST [facility] TECHNIQUE: Noncontrast CT of the LEFT knee to include the LEFT hip and ankle. CLINICAL INFORMATION: LEFT TOTAL KNEE ARTHROPLASTY SURGICAL PLANNING COMPARISON: None. DLP: 967.[address] scans at [facility] use at least one of these dose optimization techniques: automated exposure control; mA and/or kV adjustment per patient size (includes targeted exams where dose is matched to clinical indication); or iterative reconstruction. FINDINGS: Osteoarthritis sacroiliac joints with marginal sclerosis. Sigmoid diverticulosis. Small suprapatellar effusion. Advanced degenerative LEFT knee worse involving the medial joint compartment with algy-yd-oosk articulation. Hypertrophic patella. Hypertrophic changes along the joint line. Vascular calcification. Lobulated popliteal cyst measuring 2.[address]/CT knee LT [facility] [id number] IMPRESSION: Images obtained for preoperative purposes.
== END 2024-12-11 16:01 | disposition home or self-care (01) ==
PROVIDERS: PCP Family Medicine; Visit Provider Student in an Organized Health Care Education/Training Program
DX: M17.12 Unilateral primary osteoarthritis, left knee (principal); M46.1 Sacroiliitis, not elsewhere classified; K57.30 Diverticulosis of large intestine without perforation or abscess without bleeding; M22.2X2 Patellofemoral disorders, left knee; R93.6 Abnormal findings on diagnostic imaging of limbs; M71.22 Synovial cyst of popliteal space [Baker], left knee
CPT/HCPCS: 73700

== ENCOUNTER 2024-12-15 13:21 | Outpatient (CLI) | payer MEDICARE, MEDICAID, SELFPAY ==
[2024-12-15 14:01] LABS: Basophils # 0.1 10^3/uL (0.0-0.1); Basophils % 0.9 %; Eosinophils # 0.4 10^3/uL (0.0-0.8); Eosinophils % 3.4 %; Hematocrit 42.5 % (36-47); Lymphocytes # 1.8 10^3/uL (0.8-4.8); Mean Corpuscular HGB Conc 32.5 g/dL (30-55); Mean Corpuscular Hemoglobin 30.5 pg (27-33); Mean Corpuscular Volume 93.8 fl (85-98); Mean Platelet Volume 9.9 fL (7.4-10.4); Monocytes % 9.1 %; Neutrophils # 7.42 10^3/uL (1.8-7.7); Neutrophils % 69.2 %; Nucleated Red Blood Cells % 0 %; Platelet Count 414 10^3/cmm (157-399); Red Blood Count 4.53 10^6/uL (3.85-5.65); White Blood Count 10.73 10^3/uL (3.29-11.43)
[2024-12-15 14:03] LABS: Bacteria Urine None Seen /hpf; Hyaline Casts Urine 1.21 /lpf; RBC Urine 0-2 /hpf (0-2)
[2024-12-15 14:12] LABS: Add Urine Culture? Yes; Add Urine Microscopic? YES; Bilirubin Urine Neg (Negative); Blood Urine Neg (Negative); Glucose Urine UA Norm (Normal); Ketones Urine Negative (Negative); Leukocyte Esterase Urine 2+ (Negative); Nitrate Urine Negative (Negative); Protein Urine Neg (Negative); Urine Appearance Clear (CLEAR); Urine Color Yellow (Yellow); Urobilinogen Urine Neg (Negative); pH Urine 5 (5-7)
[2024-12-15 14:15] LABS: Chloride 106 mmol/L (98-107); Potassium 4.4 mmol/L (3.5-5.1); Sodium 141 mmol/L (136-145)
[2024-12-15 14:34] LABS: Alanine Aminotransferase 22 U/L (0-33); Albumin Level 4.1 g/dL (3.5-5.2); Alkaline Phosphatase 106 U/L (35-105); Anion Gap 18.4 (5-19); Aspartate Amino Transferase 27 U/L (0-32); Blood Urea Nitrogen 14 mg/dL (8-23); Calcium 9.7 mg/dL (8.5-10.5); Carbon Dioxide 21 mmol/L (22-29); Globulin 3.6 g/dL (1.3-4.6); Glucose 93 mg/dL (65-115); Osmolality Calculated 292 mOsm/kg (285-295); Total Bilirubin 0.3 mg/dL (0.15-1.2); Total Protein 7.7 g/dL (6.6-8.7)
== END 2024-12-15 13:22 | disposition home or self-care (01) ==
LOC: LAB 13:22
PROVIDERS: PCP Family Medicine; Visit Provider Student in an Organized Health Care Education/Training Program
DX: Z01.818 Encounter for other preprocedural examination (principal)
CPT/HCPCS: 36415; 80053; 81001; 85025; 87086

== ENCOUNTER → 2024-12-16 08:36 | Outpatient (BNVA) | payer MEDICARE, MEDICAID, SELFPAY | PROVIDERS: PCP Family Medicine; Visit Provider Family Medicine | DX: Z01.818 Encounter for other preprocedural examination (principal) | CPT/HCPCS: 93005 ==

== ENCOUNTER → 2024-12-17 11:52 | Outpatient (BNVA) | payer MEDICARE, MEDICAID, SELFPAY | PROVIDERS: PCP Family Medicine; Visit Provider Internal Medicine | DX: E03.9 Hypothyroidism, unspecified (principal) | CPT/HCPCS: 36415; 84439; 84443 ==

== ENCOUNTER 2024-12-22 12:09 | Observation (INO) | payer MEDICARE, MEDICAID, SELFPAY ==
[2024-12-22] VITALS (19 sets, daily range): BP systolic 121–177; BP diastolic 66–98; PULSE 72–116; RESP 14–17; TEMP 36.4–36.9; O2SAT 82–97
[2024-12-22 08:31] LABS: Glucose Point of Care 86 mg/dL (70-110)
[2024-12-22] MEDS: acetaminophen 1,000 MG/100 ML PIGGYBACK 400 MG IV ×3 (08:50→23:53)
[2024-12-22] MEDS: scopolamine 1 mg PATCH 1 PATCH TRANSDERMA (08:55)
--- NOTE | 2024-12-22 08:59 | ANES.PREANE2 ---
Pre-Anesthetic Assessment Height/Weight: Height 1.63 m Weight 79.379 kg Temp Pulse Resp BP Pulse Ox O2 Del Method 97.6 F 80 16 162/79 96 Room Air 12/22/24 08:05 12/22/24 08:05 12/22/24 08:05 12/22/24 08:05 12/22/24 08:05 12/22/24 08:15 Operation Date: 12/22/24 10:10 Proposed Procedures p Donnie Robot Total Knee Arthroplasty(Left) - Arik Frank DO Last intake: Intake Last Liquid Date 12/21/24 Last Liquid Time 20:00 Last Solid Date 12/21/24 Last Solid Time 18:30 Social No alcohol and No tobacco Airway Submandibular: within normal limits Cervical ROM: within normal limits Mallampati: Class II CV/HEM Hypertension Metabolic Thyroid Disease Hypoglycemia Musc/skel Osteoarthritis/DJD Neuropsych Anxiety Anesthetic Plan ASA status: 2 Anesthesia: General Other: Refused SAB Medications/Allergies Home Medications ?Medication ?Instructions ?Recorded ?Confirmed ?Last Taken ?Type aspirin 81 mg tablet,delayed 81 mg PO DAILY 09/18/19 12/17/24 12/16/24 History release (Aspir-) levothyroxine 50 mcg tablet 50 mcg PO DAILY #90 tabs 01/03/23 12/17/24 12/16/24 Rx one touch verio test strips #100 ea 02/07/23 12/16/24 Unknown Rx one touch verio lancets #100 ea 02/09/23 12/16/24 Unknown Rx celecoxib 100 mg capsule 100 mg PO BID #180 caps 03/21/23 12/17/24 12/16/24 Rx esomeprazole magnesium 40 mg 40 mg PO BID #180 caps 04/05/23 12/17/24 12/16/24 Rx capsule,delayed release (Nexium) mirtazapine 30 mg tablet 30 mg PO .qhs 90 days #90 tabs 05/25/24 12/17/24 12/16/24 Rx acarbose 50 mg tablet 50 mg PO TID #270 tabs 07/17/24 12/17/24 12/16/24 Rx alprazolam 1 mg tablet 1 mg PO .qhs 30 days #30 tabs 08/20/24 12/17/24 12/16/24 Rx doxepin 10 mg capsule 20 mg (2 x 10 mg) PO DAILY #60 caps 08/20/24 12/17/24 12/16/24 Rx fluoxetine 20 mg capsule 20 mg PO DAILY 90 days #90 caps 11/14/24 12/17/24 12/16/24 Rx melatonin 10 mg tablet 20 mg PO .qhs 12/16/24 12/17/24 12/16/24 History valsartan 320 mg tablet 320 mg PO DAILY 12/16/24 12/17/24 12/16/24 History conj estrogen-medroxyprogesterone 1 tab PO DAILY 12/17/24 12/17/24 12/16/24 History 0.45 mg-1.5 mg tablet (Prempro) Allergies Allergy/AdvReac Type Severity Reaction Status Date / Time pantoprazole (From Protonix) Allergy Unknown itching Verified 12/17/24 08:27 clindamycin Allergy Unknown Verified 12/17/24 08:27 losartan Allergy ADR-Itching Verified 12/17/24 08:27 [facility] Anesthesia Medical History History of gastroesophageal reflux (GERD) Underwent Lynx procedure with Dr. Eugene Ludwig at [facility]. JESENIA (generalized anxiety disorder) Goes to [facility] History of hiatal hernia Repaired Hypothyroidism Benign essential HTN Psychiatric care Major depressive disorder, recurrent, mild Surgical History History of tubal ligation Family History Father CAD (coronary artery disease) Mother CAD (coronary artery disease) Brother CAD (coronary artery disease) Sister CAD (coronary artery disease) Other Hypertension Denies family history of Diabetes Clotting disorder Dementia Hyperlipidemia Psychiatric illness Chronic kidney disease (CKD) Suicide Anesthesia complication Bleeding disorder Family history of premature coronary artery disease Lung disease Cancer Stroke Social History Smoking and tobacco/nicotine status: never used tobacco/nicotine Alcohol intake: never Substance/Drug Use: never Data Anesthesia 12/22/24 08:20 12/22/24 08:20 Cardiac Studies: Echocardiogram 02/11/24
[2024-12-22 09:00] LABS: Basophils # 0.1 10^3/uL (0.0-0.1); Basophils % 0.9 %; Eosinophils # 0.3 10^3/uL (0.0-0.8); Eosinophils % 3.2 %; Hematocrit 45.8 % (36-47); Lymphocytes # 1.5 10^3/uL (0.8-4.8); Lymphocytes % 13.9 %; Mean Corpuscular HGB Conc 32.1 g/dL (30-55); Mean Corpuscular Hemoglobin 30.5 pg (27-33); Mean Platelet Volume 10.8 fL (7.4-10.4); Monocytes # 1.1 10^3/uL (0.2-0.9); Monocytes % 10.1 %; Neutrophils # 7.53 10^3/uL (1.8-7.7); Neutrophils % 71.6 %; Nucleated Red Blood Cells % 0 %; Platelet Count 360 10^3/cmm (157-399); Red Blood Count 4.82 10^6/uL (3.85-5.65); Red Cell Distribution Width 12.2 % (12.1-15.1); White Blood Count 10.51 10^3/uL (3.29-11.43)
[2024-12-22] MEDS: ketorolac 30 mg/mL INJ IVP (09:00)
[2024-12-22] MEDS: sodium chloride 0.9% 1,000 ML 30 ML IV (09:07)
--- NOTE | 2024-12-22 09:37 | W.PM.OPSUD ---
Surgery/Procedure H&P Update DATE OF PROCEDURE: December 22, 2024 DATE H&P PERFORMED: 11/25/24 H&P UPDATE INFORMATION: I have reviewed H&P completed within last 30 days, I have examined patient prior to procedure and No changes to prior documentation PREOP DIAGNOSIS: Left knee DJD PRIMARY INDICATION FOR PROCEDURE: Left knee DJD PLANNED PROCEDURE: Operation Date: 12/22/24 10:10 Proposed Procedures p Donnie Robot Total Knee Arthroplasty(Left) - Arik Frank DO
[2024-12-22] MEDS: tranexamic acid 1,000 mg/10mL SDV 1000 MG IV (10:35)
[2024-12-22] MEDS: EPINEPHrine 1 mg/mL INJ XX (11:12)
[2024-12-22] MEDS: tranexamic acid 1,000 mg/10mL SDV 1000 MG XX (11:15)
[2024-12-22] MEDS: ketorolac 30 mg/mL INJ XX (11:23)
[2024-12-22] MEDS: ROPivacaine 0.2% Premix 100 mL 200 MG INTRA-ARTI (11:24)
--- NOTE | 2024-12-22 11:45 | P.BOP_ITS ---
Date of Procedure: 12/22/2024 Surgeon: Arik Frank DO Extruder Operator(s): Ever Frank PA-C Procedure(s) performed: Left total knee arthroplasty?Donnie robotic assisted Findings of the procedure(s): Procedure went as planned without issues or complications Estimated blood loss: 25 mL Specimen(s) removed: Tibia femur patellar bone cuts removed Post-operative diagnosis: Left knee DJD
--- NOTE | 2024-12-22 11:47 | P.OP_ITS ---
Operative Report Date of procedure: December 22, 2024 Surgeon: Arik Frank DO Plant Engineering Manager: Ever Frank PA-C: PA was necessary for assistance in this case with leg positioning retraction and protection of neurovascular structures as well as assistance in implantation wound closure and dressing application. Procedure: Preoperative diagnosis: Left knee degenerative joint disease Post-op diagnosis: Same Procedure done: Left total knee arthroplasty, cemented?robotic assisted Donnie Implants: Satish triathlon size 2 femur CR cemented?left Satish triathlon size?2 tibia universal baseplate cemented [place] triathlon symmetric patella size 29 mm [place] triathlon polyethylene 10mm Surgeon: Arik Frank DO Estimated blood?loss: 25 mL Tourniquet 53 minutes IV fluids: 900 mL Urine output: 100 mL Complications: None Condition: stable Disposition: floor Brief History: Patient is a 79-year-old male with with chronic?left knee degenerative joint disease.? Patient has been worked up in the outpatient setting in the orthopedic office at this point time through shared decision making given? kijf-bd-ywmy arthritis as well as failed conservative treatment, and pt would?like to proceed with a?left total knee arthroplasty.? Through shared decision making elected to proceed with surgical intervention for?left total knee arthroplasty with Donnie robotic assisted.? We talked about continued conservative treatment and surgical intervention as far as the risk benefits complications alternatives surgical and nonsurgical treatment options.? At this point time understanding patient risks with surgery patient agrees to proceed with surgical intervention.? Once again? risk with surgery include but are not?limited to make it better make it worse blood clot, heart attack, stroke, on the table, infection, injury to nerves or vessels, persistent pain, arthrofibrosis, implant failure.? Understanding these risks patient agrees to proceed with surgical intervention consent was obtained in the preoperative holding area.? All questions answered. Procedure: Patient was seen and evaluated in the preoperative holding area.? Consent was reviewed and signed with patient with plan for?left total knee arthroplasty.? All questions answered.? Correct extremity marked.? Patient seen and evaluated by the anesthesia department and once cleared for surgery was taken back to the operative suite.? Patient was placed into a supine position on the OR table.? All bony prominences were well-padded.? Patient was appropriately secured to the bed.? Patient underwent anesthesia per the anesthesia department.? Mercado catheter was placed.? A nonsterile tourniquet was applied to the?left thigh.? At this point in time a final timeout performed.? Patient received appropriate preoperative antibiotics and TXA. Next the?left?lower extremity was then prepped and draped in standard orthopedic fashion. Esmarch tourniquet was used exsanguinate the?left?lower extremity.? Tourniquet was insufflated to 250 mmHg. A standard anterior incision was made over midline of the knee.? Sharp scalpel excision through skin and subcutaneous tissue full-thickness skin flaps were made.? Fascia was elevated off of the extensor retinaculum was stable with medial parapatellar arthrotomy was then made.? The performed standard sequential releases..? Immediately on entry into the joint patient was found to have severe eburnated bone and tricompartmental arthritic changes noted.? With significant osteophyte formation.? Next the the patella was then stuffed and the knee was then flexed.?? Celestino was placed superiorly around the anterior aspect of the femur this was freed of synovium and I subsequently then placed by 2 femur pins to establish my femur arrays for the Donnie robot.? These were then placed bicortically and? femur array was then appropriately secured with appropriate visualization.? Next attention was turned towards the tibial rays.? These were then drilled sequentially bicortically in parallel fashion and intraincisional.? I then placed my guide as well as my tibial array on in place.? This was appropriately secured and had excellent visualization with the Donnie robot.? Next the tibial checkpoint as well as femur checkpoint were then placed.? At this point time I then subsequently established my head center as well as my medial?lateral malleoli as well as my checkpoints.? Next utilizing standard Donnie technology I then mapped out the appropriate points and confirmation points around the femur as well as the tibia in standard fashion.? Once this was then done I then removed all osteophytes in preparation for dynamic testing.? All osteophytes were removed as well as I removed the ACL and the PCL was excised due to its significant tearing and degeneration noted.? At this point time the knee was brought into full extension and we performed our standard evaluation of our gap balancing stressing his?ligaments and extension as well as flexion appropriate adjustments were made to have appropriate gap balancing in both flexion and extension.? This plan for final counts.? We get a preoperative plan evaluating our implants which was a size2 femur and a size 2 tibia.? Next we brought in the Donnie robot and sequentially made our femur cuts.? All excess bony cuts were then removed.? Finally we made our tibial cut.? Once this was done a standard PCL retractor was then placed into this position I excised the medial and?lateral meniscus.? The tibial cut was then subsequently removed all excess bony debris was removed.? I then utilized a?lamina washer engineer helper and remove the posterior osteophytes.? At this point time sized the tibia and confirmed this was a size 2.? I utilized our blunt probe to establish rotation of tibial implant.? Once this was done I then placed my tibia size 2 trial in appropriate position and then subsequently placed tibial pins to hold this into place placed and trialed up to a size 10 mm poly as well as a size 2 femur which was appropriately impacted in place knee was then subsequently brought into extension. Trials were then assessed,? this was stable with varus valgus stress in extension as well as had symmetrical translation when brought into flexion demonstrating symmetrical gaps. I had excellent balance gaps in flexion and extension with varus and valgus stresses.? At this point I was satisfied with th annita implants these were then verified and opened on the back table size 2 tibia, size 2 femur,? size 10 mm polythickness.? We did confirm appropriate gap balancing and stresses as well as alignment utilizing? Donnie and were satisfied with this plan.? ?At this point time with my trials in place I then towel clip the patella everted this made appropriate measurements subsequently utilizing freehand technique performed by patellar resurfacing this was confirmed to be appropriate resection and subsequently sized to be a 29 mm symmetric.? My drill peg guides were then clamped and appropriate position and appropriate position in the patella for appropriate tracking and parallel with the joint.? Pegs were drilled trial implant was placed and the knee was then subsequently ranged and found to have excellent patellar tracking.? Femur pegs were then drilled.? At this point time all of our trial implants were removed.? All checkpoints as well as guidepins and arrays were removed and appropriate counts made. Satisfied with our tibial placement rotation I then utilized the keel punch and prepped the tibia.? The wound bed? was thoroughly irrigated and dried and prepped for cementation.? Cement was mixed on the back table.? Once cement was ready this was then covered onto the tibia and the tibial baseplate was then impacted and all excess cement was removed.? Next the polyethylene was then impacted into place on the tibial baseplate.? Next cement was placed onto the femur as well as under the femur implants and impacted in to place and all excess cement was extruded and removed.? Knee was taken into full extension? to clear all excess cement was removed.? Warm saline was placed over the joint.? I then towel clip patella and dried for cementation. cemented the patella into place.? This was all clamped and the cement was allowed to cure.? Thorough irrigation performed with pulse?lavage.? I then placed my periarticular injection while the cement was curing.? Once cured the knee was taken through range of motion and had excellent stability and gaps were balanced in flexion and extension.? Tourniquet was then deflated. hemostasis satisfactory with electrocautery.? Next I then subsequently closed the capsule with Ethibond suture as well as a running strata fix suture.? Knee was then taken through range of motion 20 times.? Next the skin was then closed in?layered fashion of running stratifix sutures of deep and subcutenous tissue and skin.? ?closed in flexion and Prineo glue was then placed over the incision this allowed to cure.? Incision was covered with Silverlon, with ABDs soft roll and Chase wrap.? Patient was then awakened from anesthesia and taken to PACU in stable condition. Disposition: Patient taken to PACU in stable condition will be admitted to the floor for pain control PT/OT weight-bear as tolerated?left?lower extremity dressing changes as needed, DVT prophylaxis. Pain control. Patient will receive appropriate postoperative antibiotics. patient will be seen today by the internal medicine team for medical management.? Patient will follow up with the office in 2 weeks.? Patient understands agrees with current plan.? All questions answered.
--- NOTE | 2024-12-22 12:13 | XRR_ITS ---
PROCEDURE INFORMATION: Exam: XR Left Knee Exam date and time: 12/22/2024 12:12 PM Age: 79 years old Clinical indication: Device placement; Joint replacement hardware; Prior surgery; Surgery date: Post-operative (0-2 days); Surgery type: Post op lt knee; Additional info: Post L tka, do in pacu TECHNIQUE: Imaging protocol: Radiologic exam of the left knee. Views: 1 or 2 views. COMPARISON: CT knee LT DONTA [id number] 12/11/2024 4:17 PM FINDINGS: Bones/joints: Patient has had an interval left total knee arthroplasty. Hardware is well positioned. No acute fracture. No dislocation. Air in the left knee joint space, likely postsurgical in nature. Stable small calcified enthesophyte at the left quadriceps tendon insertion. Soft tissues: Air in the soft tissues surrounding the left knee joint space, likely postsurgical in nature. No radiopaque foreign body. Vasculature: Stable atherosclerotic calcifications in the visualized arteries. XR/XR knee LT 1-2V [id number] IMPRESSION: 1. Status post left total knee arthroplasty without evidence for complication. 2. Air in the left knee joint space and surrounding soft tissues, likely postsurgical in nature.
--- NOTE | 2024-12-22 12:18 | PM.PACU ---
PACU note Narrative: Patient is a 79-year-old female who just underwent a left total knee arthroplasty. Pt transferred to PACU in stable condition. Dressing is dry. pt is awake and alert. pt can wiggle toes and plantarflex and dorsiflex foot. pt able to perform straight leg raise, Femoral nerve intact. Distal pulses are palpable toes are warm and well-perfused. Cap refill is normal and under 2 seconds. Sensation to foot is intact. Pain is controlled. Exam: awake Disposition: admitted
[2024-12-22] MEDS: fentaNYL 50 mcg/mL INJ 2mL IVP (12:50)
[2024-12-22] MEDS: ondansetron 2 mg/ML SDV 2 mL 4 MG IVP (12:50)
[2024-12-22] MEDS: ondansetron 2 mg/ML SDV 2 mL 4 MG (13:07)
--- NOTE | 2024-12-22 13:22 | ANE.PACU2 ---
Inpatient post-anesthesia follow up: Vital signs: Temperature 98.4 F Pulse Rate 104 Respiratory Rate 16 Blood Pressure 166/80 Pulse Oximetry 96 Oxygen Delivery Me thod Nasal Cannula Oxygen Flow Rate 3 Fraction of Inspir ed Oxygen Hydration adequate: Yes Nausea and vomiting: No Pain level: Actively managed Mental status: Baseline
--- NOTE | 2024-12-22 13:44 | P.CONIM_ITS ---
Providers/Reason For Consult 2 Consulting Physician/Specialty*: Frase/Hospitalist Reason for Consult*: HTN, anxiety, depression, hypothyroidism, GERD Requesting Physician: Dr Frank Attending Physician: Arik Frank DO Primary Care Provider: Scott Shetty MD History of Present Illness History of Present Illness Caitlyn Beard is a 79 year old female Who presented to [facility] on the day of admission for planned left total knee replacement by Dr. Frank. She had spinal anesthesia and did well perioperatively. Estimated blood loss 25 mL. She has had some pain medications and with that is doing well from a pain control standpoint. No complaints of any cough, shortness of breath, chest pain, nausea or vomiting. Has had a difficult time getting into a comfortable position to eat. We reviewed her medications as well as her history. Has hypertension, hypothyroidism, hypoglycemia for which she is on acarbose, hiatal hernia with reflux disease, anxiety and depression. No history of other cardiac disease beyond hypertension. No history of pulmonary disease. She is on conjugated estrogens chronically. Does not smoke. Hospitalist were consulted for management of her medical issues and medications. Review of Systems 2 General: Reports: Other (ROS as per HPI or as noted here) Medications/Allergies Home Medications ?Medication ?Instructions ?Recorded ?Confirmed ?Last Taken ?Type levothyroxine 50 mcg tablet 50 mcg PO DAILY #90 tabs 0 01/03/23 12/22/24 01/22/24 Rx one touch verio test strips #100 ea 02/07/23 12/22/24 Unknown Rx one touch verio lancets #100 ea 02/09/23 12/22/24 Un known Rx celecoxib 100 mg capsule 100 mg PO BID #180 caps 03/1012/22/24 01/21/24 Rx esomeprazole magnesium 40 mg 40 mg PO BID #180 caps 12/22/24 01/21/24 Rx capsule,delayed release (Nexium) mirtazapine 30 mg tablet 30 mg PO .qhs 90 days #90 ta bs 05/25/24 12/22/24 Unknown Rx acarbose 50 mg tablet 50 mg PO TID #270 tabs 07/1712/22/24 Unknown Rx alprazolam 1 mg tablet 1 mg PO .qhs 30 days #30 tab s 08/20/24 12/22/24 Unknown Rx doxepin 10 mg capsule 20 mg (2 x 10 mg) PO DAILY # 60 caps 08/20/24 12/22/24 Unknown Rx fluoxetine 20 mg capsule 20 mg PO DAILY 90 days #90 c aps 11/14/24 12/22/24 Unknown Rx melatonin 10 mg tablet 20 mg PO .qhs 12/16/2412/22 Unknown History valsartan 320 mg tablet 320 mg PO DAILY 12/16/24 Unknown History conj estrogen-medroxyprogesterone 1 tab PO DAILY 12/1712/22/24 Unknown History 0.45 mg-1.5 mg tablet (Prempro) aspirin 81 mg tablet,delayed 81 mg PO DAILY 12/22/24 0 12/22/24 Unknown History release Allergies Allergy/AdvReac Type Severity Reaction Status Date / Time pantoprazole (From Protonix) Allergy Unknown itching Verified 12/17/24 08:27 clindamycin Allergy Unknown Verified 12/17/24 08:27 losartan Allergy ADR-Itching Verified 12/17/24 08:27 Current Medications Generic Name Dose Route Start Last Admin Trade Name Freq PRN Reason Stop Dose Admin Fentanyl 50 mcg 12/22/24 07:20 12/22/24 12:50 Fentanyl 50 Mcg/Ml Inj 2ml IVP 50 mcg Q10M PRN Administration Preop Pain Sodium Chloride 1,000 mls @ 30 mls/hr 12/22/24 07:30 12/22/24 09:07 Sodium Chloride 0.9% IV 12/23/24 07:29 30 mls/hr .Q24H DIONNE Administration Ondansetron HCl 4 mg 12/22/24 07:20 12/22/24 12:50 Ondansetron 2 Mg/Ml Sdv 2 Ml IVP 12/23/24 07:20 4 mg Q5M PRN Administration Nausea PACU Phase I PFSH Acute 2 PFSH: Medical History (Updated 12/22/24 @ 13:52 by Lacy Powell MD) Hypoglycemia on acarbose, follows with Dr Henry Hiatal hernia with gastroesophageal reflux Normal esophagogastroduodenoscopy (EGD) History of gastroesophageal reflux (GERD) Underwent Lynx procedure with Dr. Eugene Ludwig at [facility]. JESENIA (generalized anxiety disorder) Goes to [facility] History of hiatal hernia Repaired Hypothyroidism Benign essential HTN Psychiatric care Major depressive disorder, recurrent, mild Surgical History (Updated 12/22/24 @ 13:52 by Lacy Powell MD) Status post total left knee replacement using cement (12/22/24) Donnie Man-assisted History of colonoscopy with polypectomy 2021 History of tubal ligation Family History Father CAD (coronary artery disease) Mother CAD (coronary artery disease) Brother CAD (coronary artery disease) Sister CAD (coronary artery disease) Other Hypertension Denies family history of Diabetes Clotting disorder Dementia Hyperlipidemia Psychiatric illness Chronic kidney disease (CKD) Suicide Anesthesia complication Bleeding disorder Family history of premature coronary artery disease Lung disease Cancer Stroke Social History Smoking and tobacco/nicotine status: never used tobacco/nicotine Alcohol intake: never Substance/Drug Use: never Vitals/I&O/Wt Last Vital Signs Temp 98.4 F 12/22/24 12:03 Pulse 104 H 12/22/24 12:38 Resp 16 12/22/24 12:50 BP 166/80 12/22/24 12:38 Pulse Ox 96 12/22/24 12:50 O2 Del Method Nasal Cannula 12/22/24 12:38 O2 Flow Rate 3 12/22/24 12:38 12/21/24 12/22/24 12/22/24 22:59 06:59 14:59 Intake Total 100 / 100 Output Total 125 / 125 Balance -25 / -25 Weight last 48 hrs Weight 79.379 kg Physical Exam 2 Narrative: Patient is Awake and alert, able to provide history. Normocephalic. Extraocular movements are intact. Lungs are clear to auscultation without any rales rhonchi or wheezes. Cardiovascular exam reveals a regular rate and rhythm. Abdomen is soft, nontender. Moves both feet and sensation is intact at both feet to light touch and equal. Face symmetric, speech is clear. Urinary Catheter Management: Ordoñez: Cath Placed During This Visit: yes Urinary Catheter Date of Insertion: 12/22/24 Urinary Catheter Time of Insertion: 10:35 Data 12/22/24 08:20 12/22/24 08:20 A&P Assessment and plan (1) Status post total left knee replacement using cement: POD 0 from surgery as per Dr Frakn. Did well. - Spinal anesthesia - Pain control - On cefazolin post-op regimen, s/p vancomycin x one dose - Has ordoñez with orders to remove - Has SCDs and orders for eliquis to start in am - Stool softeners, laxatives as needed - PT to see - Plan is for home with home health tomorrow if remains stable (2) Benign essential HTN: Chronically on valsartan -Resume formulary equivalent ARB in am (3) Hypoglycemia: Chronically on acarbose, follows with Dr Henry. -If available, continue home acarbose; otherwise resume once home -Accuchecks with hypoglycemia protocol (4) Hypothyroidism: Chronically on levothyroxine -Continue home dosing Qualifiers: Hypothyroidism type: acquired Qualified Code(s): E03.9 - Hypothyroidism, unspecified (5) JESENIA (generalized anxiety disorder): Chronically on alprazolam -Continue alprazolam at bedtime, with pain medications on board will halve dose (6) Hiatal hernia with gastroesophageal reflux: Chronically on esopemprazole -Continue formulary PPI (7) Vasomotor symptoms due to menopause: Chronically on Prempro for menopause symptom management -Recommendation is to hold for next few weeks given increased risk for DVT if can tolerate (8) Major depressive disorder, recurrent, mild: Chronically on fluoxetine, doxepin and mirtazapine long with melatonin for sleep -Continue home dosing fluoxetiine and mirtazapine -Continue melatonin at available formulary dosing -Hold doxepin for now given post operative state and usual dosing; takes primarily for sleep Plan Has required oxygen post operatively, weaning to room air as able, no history of COPD or CEDRIC known, no respiratory complaints Observation admission VTE prophylaxis: Eliquis to start in am; scds currently Antibiotics: perioperative ordered Pending studies: am labs Telemetry: not currently indicated Ordoñez: orders to remove in place Line(s): peripheral IVs Disposition plan: Home with outpatient follow up and PT as per discharge plan arranged prior to elective surgery. Son will be with her at home. Chronically on benzodiapines. Will need to be careful mixing alprazolam, doxepin and other sedating medications with pain medications as can increase risk of respiratory and neurologic depression Code Status: Full Code Supportive care otherwise Plans as noted were discussed with patient and she was given an opportunity to ask questions Thank you for consultation will follow while here PDMP PDMP Reviewed: Last Reviewed 12/22/24 13:53 by Lacy Powell MD Consult Attestations 2 Medical Necessity Statement: as per attending Diagnoses Status post total left knee replacement using cement Z96.652 Benign essential HTN I10 Hypoglycemia E16.2 Acquired hypothyroidism E03.9 Hypothyroidism type: acquired JESENIA (generalized anxiety disorder) F41.1 Hiatal hernia with gastroesophageal reflux K44.9; K21.9 Vasomotor symptoms due to menopause N95.1 Major depressive disorder, recurrent, mild F33.0
[2024-12-22 15:00] LABS: Glucose Point of Care 139 mg/dL (70-110)
[2024-12-22] MEDS: oxyCODONE 5 mg IR Tab/Cap PO (15:04)
[2024-12-22] MEDS: lactated ringers 1,000 ML 75 ML IV (15:04)
[2024-12-22] MEDS: ceFAZolin 2,000 MG in sodium chloride 0.9% (plus) 50 ML 100 MG IV (18:05)
[2024-12-22] MEDS: docusate sodium 100 mg Capsule PO (18:06)
[2024-12-22] MEDS: calcium carb-vit d 600mg/400unit 1 Tablet 1 EACH PO (18:06)
[2024-12-22] MEDS: chlorhexidine gluconate 0.12% Btl 473 mL 30 ML MUCOUS MEM ×2 (18:06→21:13)
[2024-12-22] MEDS: mupirocin oint 22 gm 1 APPLIC NASAL (18:06)
[2024-12-22] MEDS: pantoprazole DR 40 mg Tablet PO (18:06)
[2024-12-22] MEDS: tranexamic acid 1,000 MG/100 ML PREMIX 600 MG IV (18:07)
[2024-12-22] MEDS: iron polysaccharide complex 150 mg Capsule PO (18:09)
[2024-12-22] MEDS: calcium carbonate 500 mg Chew Tablet 1000 MG PO (18:52)
--- NOTE | 2024-12-22 20:24 | PC.NURSE ---
This RN talked to patient at this time about getting up to walk and once patient is comfortable getting up to bathroom, ordoñez catheter can be removed with appropriate output. Patient refused at this time and requested to keep ordoñez catheter and not walk until morning.
[2024-12-22] MEDS: mirtazapine 30 mg Tablet PO (21:11)
[2024-12-22] MEDS: ALPRAZolam 0.5 mg Tablet PO (21:11)
[2024-12-22] MEDS: MELATONIN 3 MG TABLET PO (21:12)
[2024-12-22] MEDS: ketorolac 30 mg/mL INJ 15 MG IVP (21:15)
[2024-12-23] VITALS (8 sets, daily range): BP systolic 115–163; BP diastolic 45–72; PULSE 72–90; RESP 16–18; TEMP 36.6–37.1; O2SAT 92–97
[2024-12-23] MEDS: oxyCODONE 5 mg IR Tab/Cap PO ×3 (00:03→12:43)
[2024-12-23] MEDS: ceFAZolin 2,000 MG in sodium chloride 0.9% (plus) 50 ML 100 MG IV ×2 (00:06→09:14)
--- NOTE | 2024-12-23 02:02 | PC.NURSE ---
Pain Patient complaining of pain in left knee at a 5 on a 1-10 numerical scale. Pain medications discussed. Patient refuses medication at this time. Education provided on pain levels and when to seek medication. Patient stated maybe later.
[2024-12-23 04:38] LABS: Basophils % 0.3 %; Eosinophils % 0.2 %; Hematocrit 35.5 % (36-47); Lymphocytes # 1.4 10^3/uL (0.8-4.8); Lymphocytes % 12.8 %; Mean Corpuscular HGB Conc 32.1 g/dL (30-55); Mean Corpuscular Hemoglobin 30.5 pg (27-33); Mean Corpuscular Volume 94.9 fl (85-98); Mean Platelet Volume 10.7 fL (7.4-10.4); Monocytes # 1.3 10^3/uL (0.2-0.9); Monocytes % 11.5 %; Neutrophils # 8.44 10^3/uL (1.8-7.7); Neutrophils % 74.9 %; Nucleated Red Blood Cells % 0 %; Platelet Count 309 10^3/cmm (157-399); Red Blood Count 3.74 10^6/uL (3.85-5.65); Red Cell Distribution Width 12.1 % (12.1-15.1); White Blood Count 11.25 10^3/uL (3.29-11.43)
[2024-12-23 05:02] LABS: Blood Urea Nitrogen 13 mg/dL (8-23); Calcium 8.7 mg/dL (8.5-10.5); Carbon Dioxide 22 mmol/L (22-29); Chloride 107 mmol/L (98-107); Creatinine Clr Calc Pharmacy 53.3613; Glucose 110 mg/dL (65-115); Osmolality Calculated 291 mOsm/kg (285-295); Sodium 140 mmol/L (136-145)
[2024-12-23 05:18] LABS: Anion Gap 15.3 (5-19); Potassium 4.3 mmol/L (3.5-5.1)
[2024-12-23] MEDS: lactated ringers 1,000 ML 75 ML IV (05:48)
[2024-12-23] MEDS: acetaminophen 1,000 MG/100 ML PIGGYBACK 400 MG IV (05:48)
[2024-12-23] MEDS: apixaban 5 mg Tablet 2.5 MG PO (09:22)
[2024-12-23] MEDS: aspirin 81 mg EC Tablet PO (09:22)
[2024-12-23] MEDS: pantoprazole DR 40 mg Tablet PO (09:22)
[2024-12-23] MEDS: multivitamin therapeutic Tablet 1 TAB PO (09:23)
[2024-12-23] MEDS: calcium carb-vit d 600mg/400unit 1 Tablet 1 EACH PO (09:23)
[2024-12-23] MEDS: docusate sodium 100 mg Capsule PO (09:23)
[2024-12-23] MEDS: iron polysaccharide complex 150 mg Capsule PO (09:24)
[2024-12-23] MEDS: mupirocin oint 22 gm 1 APPLIC NASAL (09:26)
[2024-12-23] MEDS: chlorhexidine gluconate 0.12% Btl 473 mL 30 ML MUCOUS MEM (09:26)
[2024-12-23] MEDS: ondansetron 2 mg/ML SDV 2 mL 4 MG IVP (10:16)
--- NOTE | 2024-12-23 12:16 | P.DS_ITS ---
Discharge Providers Date of Admission: 12/22/24 12:09 Date of Discharge: December 23, 2024 Attending Provider at Admission: Arik Frank DO Attending Provider at Discharge: Arik Frank DO Consults: Dr. Powell?hospitalist Primary Care Provider: Scott Shetty MD Diagnoses at Discharge Discharge Diagnosis (1) Status post total left knee replacement using cement: Status: Acute Permanent problem details: Donnie Man-assisted (2) Benign essential HTN: Status: Chronic (3) Hypoglycemia: Status: Chronic Permanent problem details: on acarbose, follows with Dr Henry (4) Hypothyroidism: Status: Chronic Qualifiers: Hypothyroidism type: acquired Qualified Code(s): E03.9 - Hypothyroidism, unspecified (5) JESENIA (generalized anxiety disorder): Status: Chronic Permanent problem details: Goes to [facility] (6) Hiatal hernia with gastroesophageal reflux: Status: Chronic (7) Vasomotor symptoms due to menopause: Status: Acute (8) Major depressive disorder, recurrent, mild: Status: Chronic Reason for Visit Reason for Visit: M17.12 Brief History: Status post left total knee arthroplasty Hospital Course Hospital Course Patient presented to the preoperative holding area with plan for left total knee arthroplasty after patient has been worked up in the outpatient setting for failed conservative treatment of [left] knee degenerative joint disease. Once cleared by anesthesia for surgery patient subsequently was taken back to the operative suite underwent anesthesia per anesthesia department and then subsequently underwent a [left] total knee arthroplasty. Procedure was performed without any complications patient was taken to PACU in stable condition patient recovered well in PACU and then was admitted to the floor postoperatively internal medicine was consulted and on board for medical management and assistance with care. Patient received appropriate PT/OT, postoperative antibiotics, postoperative TXA, pain control, postoperative DVT prophylaxis. Elevation and ice. Patient encouraged for knee range of motion allowed weightbearing as tolerated to the operative lower extremity. Dressing was changed as needed, labs were monitored daily. Patient recovered well postoperatively and worked well and progressed well with therapy. It was determined on postoperative day 1 the patient was stable for discharge from an orthopedic standpoint and medicine. Patient was comfortable with discharge and plan was discharged home. Patient received appropriate discharge instructions as well as pain medication and DVT prophylaxis postoperatively. Given appropriate instructions for dressing management. Patient will follow-up with Dr. Frank/orthopedics in the office in 2 weeks. All questions answered. Understand if there is any issues questions or concerns and contact the office. Physical Exam Narrative: Left knee examination: Dressing on in place, clean dry and intact. No evidence of saturation. Patient has normal postoperative swelling and tenderness to palpation to the knee. Compartments are soft compressible,'s calf soft and nontender. Sensations intact to light touch distally. Distal pulses are palpable. Patient is able to wiggle toes as well as plantarflex and dorsiflex ankle. Urinary Catheter Management: Mercado: Cath Placed During This Visit: yes Reason for Continuing Indwelling Catheter: Perioperative Use in Selected Surgeries Urinary Catheter Date of Insertion: 12/22/24 Urinary Catheter Time of Insertion: 10:35 Discharge Data Studies Completed and Pending Completed Studies During Hospitalization Category Date Time Status XR knee LT 1-2V [id number] Routine Exams 12/22/24 12:13 Completed Pending at discharge Category Date Time Status Basic Metabolic Panel AM LABS Lab 12/24/24 04:00 Ordered Basic Metabolic Panel AM LABS Lab 12/25/24 04:00 Ordered Complete Blood Count w/Auto AM LABS Lab 12/24/24 04:00 Ordered Complete Blood Count w/Auto AM LABS Lab 12/25/24 04:00 Ordered Radiology Impressions Knee X-Ray 12/22/24 12:13 IMPRESSION: 1. Status post left total knee arthroplasty without evidence for complication. 2. Air in the left knee joint space and surrounding soft tissues, likely postsurgical in nature. Laboratory Results WBC 11.25 10^3/uL (3.29-11.43) 12/23/24 04:05 RBC 3.74 10^6/uL (3.85-5.65) L 12/23/24 04:05 Hgb 11.40 g/dL (11.27-16.99) 12/23/24 04:05 Hct 35.5 % (36-47) L 12/23/24 04:05 MCV 94.9 fl (85-98) 12/23/24 04:05 MCH 30.5 pg (27-33) 12/23/24 04:05 MCHC 32.1 g/dL (30-55) 12/23/24 04:05 RDW 12.1 % (12.1-15.1) 12/23/24 04:05 Plt Count 309 10^3/cmm (157-399) 12/23/24 04:05 MPV 10.7 fL (7.4-10.4) H 12/23/24 04:05 Neut % (Auto) 74.9 % 12/23/24 04:05 Lymph % (Auto) 12.8 % 12/23/24 04:05 Hubbard % (Auto) 11.5 % 12/23/24 04:05 Eos % (Auto) 0.2 % 12/23/24 04:05 Baso % (Auto) 0.3 % 12/23/24 04:05 Neut # (Auto) 8.44 10^3/uL (1.8-7.7) H 12/23/24 04:05 Lymph # (Auto) 1.4 10^3/uL (0.8-4.8) 12/23/24 04:05 Hubbard # (Auto) 1.3 10^3/uL (0.2-0.9) H 12/23/24 04:05 Eos # (Auto) 0.0 10^3/uL (0.0-0.8) 12/23/24 04:05 Baso # (Auto) 0.0 10^3/uL (0.0-0.1) 12/23/24 04:05 Nucleated RBC % (auto) 0 % 12/23/24 04:05 Nucleated RBCs # 0.0 /100WBC 12/23/24 04:05 Sodium 140 mmol/L (136-145) 12/23/24 04:05 Potassium 4.3 mmol/L (3.5-5.1) 12/23/24 04:05 Chloride 107 mmol/L (98-107) 12/23/24 04:05 Carbon Dioxide 22 mmol/L (22-29) 12/23/24 04:05 Anion Gap 15.3 (5-19) 12/23/24 04:05 BUN 13 mg/dL (8-23) 12/23/24 04:05 Creatinine 0.9 mg/dL (0.5-0.9) 12/23/24 04:05 GFR Calculation Not Reportable 12/23/24 04:05 Glucose 110 mg/dL (65-115) 12/23/24 04:05 POC Glucose 139 mg/dL (70-110) H 12/22/24 14:55 Calculated Osmolality 291 mOsm/kg (285-295) 12/23/24 04:05 Calcium 8.7 mg/dL (8.5-10.5) 12/23/24 04:05 Blood Type A Positive 12/22/24 08:20 Rho(D) Type Rh positive 12/22/24 08:20 Antibody Screen Negative 12/22/24 08:20 Vitals Last Vital Signs Temp 97.9 F 12/23/24 09:30 Pulse 90 12/23/24 09:30 Resp 16 12/23/24 09:30 BP 156/72 12/23/24 09:30 Pulse Ox 95 12/23/24 09:30 O2 Del Method Room Air 12/23/24 09:30 O2 Flow Rate 1 12/22/24 15:46 Discharge Plan Discharge Patient Disposition: Home Health Service Condition: Stable Prescriptions: New Eliquis 2.5 mg tablet 2.5 mg PO BID 14 Days Qty: 28 0RF oxycodone 5 mg tablet 5 mg PO Q6H PRN (Reason: pain postop) 7 Days Qty: 28 0RF Continued mirtazapine 30 mg tablet 30 mg PO .qhs 90 Days Qty: 90 3RF alprazolam 1 mg tablet 1 mg PO .qhs 30 Days Qty: 30 5RF doxepin 10 mg capsule 20 mg PO DAILY Qty: 60 6RF fluoxetine 20 mg capsule 20 mg PO DAILY 90 Days Qty: 90 3RF valsartan 320 mg tablet 320 mg PO DAILY melatonin 10 mg tablet 20 mg PO .qhs levothyroxine 50 mcg tablet 50 mcg PO DAILY Qty: 90 1RF (DME) one touch verio test strips See Rx Instructions .Route .MEDSUPPLY Qty: 100 11RF Rx Instructions: Test bid. Order #[id number] (DME) one touch verio lancets 30gauge See Rx Instructions .Route .MEDSUPPLY Qty: 100 11RF Rx Instructions: Test twice daily. Order # [id number] esomeprazole magnesium [Nexium] 40 mg capsule,delayed release(DR/EC) 40 mg PO BID Qty: 180 1RF acarbose 50 mg tablet 50 mg PO TID Qty: 270 1RF Rx Instructions: 50mg 3x/day before meals Prempro 0.45-1.5 mg tablet 1 tab PO DAILY Rx Instructions: TAKE 1 TABLET BY MOUTH DAILY aspirin 81 mg Tablet,Delayed Release (Dr/Ec) 81 mg PO DAILY Held celecoxib 100 mg capsule 100 mg PO BID Qty: 180 2RF Hold Instructions: Resume on 01/06/25. Discharge Orders: Discharge Order (Routine); Ordered 12/23/24 Ordered By: Arik Frank Other Ambulatory Orders: DME: Walker (Order) Location: None Selected Ordered By: Arik Frank Referrals: [facility] [Outside] Arik Frank DO [Physician] - 01/06/25 8:30 am Discharge Diet: Regular Discharge Activity: Limit activity as instructed Patient Instructions: Ondansetron (By mouth) (Zofran, Zofran ODT, Zuplenz), Apixaban (By mouth) (Eliquis), Acute Wound Care (DC), Precautions after Total Joint Replacement Surgery (GEN), Joint Replacement Surgery (GEN), Total Knee Replacement (GEN), Opioid Safety, Post Anesthesia Care Activity Restrictions/Additional Instructions: Ortho Discharge instructions Keep incisions clean dry and intact, leave Silverlon bandage dressings on in place for 7 days after that may rinse incisions with warm soapy water pat dry and redress with a dry dressing/ new silverlon dressing Patient may weight-bear as tolerate to the operative extremity Utilize walker as needed Encourage knee range of motion Ice and elevate as needed for pain and swelling Take pain medication as prescribed Take antinausea medication as needed Pain medication can cause constipation. take [id number] stool softeners and or MiraLAX. Take prescribed Eliquis twice daily for the next 14 days for blood clot prevention May supplement for pain with Tylenol [id number] as needed(1000 mg every 8 hours-do not exceed more than 3000mg in 24-hour period) No baths or soaks Follow-up in the orthopedic office in 2 weeks Contact the office for any questions or concerns Discharge Attestations Time Spent in Discharge Care*: less than 30 min Quality Metrics Clinical Quality Measures [ No reported AMI, CVA or VTE this stay] Coding Level of Care Code Acute Code for Chg Fwd Diagnoses Status post total left knee replacement using cement Z96.652 Benign essential HTN I10 Hypoglycemia E16.2 Acquired hypothyroidism E03.9 Hypothyroidism type: acquired JESENIA (generalized anxiety disorder) F41.1 Hiatal hernia with gastroesophageal reflux K44.9; K21.9 Vasomotor symptoms due to menopause N95.1 Major depressive disorder, recurrent, mild F33.0
--- NOTE | 2024-12-23 13:20 | P.PN_ITS ---
Subjective 2 Subjective: c/o pain at surgical site but otherwise feels well overall. Worked with PT today, Medications: Reviewed: Yes Vitals/I&O/Wt Last Vital Signs Temp 97.8 F 12/23/24 12:47 Pulse 76 12/23/24 12:47 Resp 16 12/23/24 12:47 BP 163/68 12/23/24 12:47 Pulse Ox 97 12/23/24 12:47 O2 Del Method Room Air 12/23/24 12:47 O2 Flow Rate 1 12/22/24 15:46 12/22/24 12/23/24 12/23/24 22:59 06:59 14:59 Intake Total 750 / 1850 1150 / 3000 Output Total 825 / 950 Balance -75 / 900 1150 / 2050 Weight last 48 hrs Weight 81.102 kg Weight 79.379 kg Weight 79.379 kg Physical Exam 2 Narrative: General: No acute distress, AO x3 HEENT: PERRLA, pupils bilaterally equal and reactive, pallors not present Chest: Normal vesicular breath sounds, no added sounds, equal good air entry bilaterally CVS: S1-S2 regular, no murmurs, no tachycardia, no gallops, no rubs Abdomen: Soft, nontender, no organomegaly, bowel sounds present Neuro: No focal deficits, no facial deformity, AO x3, power 5/5 in all limbs Urinary Catheter Management: Ordoñez: Cath Placed During This Visit: yes Reason for Continuing Indwelling Catheter: Perioperative Use in Selected Surgeries Urinary Catheter Date of Insertion: 12/22/24 Urinary Catheter Time of Insertion: 10:35 Data 12/23/24 04:05 12/23/24 04:05 A&P Assessment and plan (1) Status post total left knee replacement using cement: POD 0 from surgery as per Dr Frank. Did well. - Spinal anesthesia - Pain control - On cefazolin post-op regimen, s/p vancomycin x one dose - Has ordoñez with orders to remove - Has SCDs and orders for eliquis to start in am - Stool softeners, laxatives as needed - PT to see - Plan is for home with home health tomorrow if remains stable (2) Benign essential HTN: Chronically on valsartan -Resume formulary equivalent ARB in am (3) Hypoglycemia: Chronically on acarbose, follows with Dr Henry. -If available, continue home acarbose; otherwise resume once home -Accuchecks with hypoglycemia protocol (4) Hypothyroidism: Chronically on levothyroxine -Continue home dosing Qualifiers: Hypothyroidism type: acquired Qualified Code(s): E03.9 - Hypothyroidism, unspecified (5) JESENIA (generalized anxiety disorder): Chronically on alprazolam -Continue alprazolam at bedtime, with pain medications on board will halve dose (6) Hiatal hernia with gastroesophageal reflux: Chronically on esopemprazole -Continue formulary PPI (7) Vasomotor symptoms due to menopause: Chronically on Prempro for menopause symptom management -Recommendation is to hold for next few weeks given increased risk for DVT if can tolerate (8) Major depressive disorder, recurrent, mild: Chronically on fluoxetine, doxepin and mirtazapine long with melatonin for sleep -Continue home dosing fluoxetiine and mirtazapine -Continue melatonin at available formulary dosing -Hold doxepin for now given post operative state and usual dosing; takes primarily for sleep Plan Has required oxygen post operatively, weaning to room air as able, no history of COPD or CEDRIC known, no respiratory complaints Observation admission VTE prophylaxis: Eliquis to start in am; scds currently Antibiotics: perioperative ordered Pending studies: am labs Telemetry: not currently indicated Ordoñez: orders to remove in place Line(s): peripheral IVs Disposition plan: Home with outpatient follow up and PT as per discharge plan arranged prior to elective surgery. Son will be with her at home. Chronically on benzodiapines. Will need to be careful mixing alprazolam, doxepin and other sedating medications with pain medications as can increase risk of respiratory and neurologic depression Code Status: Full Code Supportive care otherwise Plans as noted were discussed with patient and she was given an opportunity to ask questions Thank you for consultation will follow while here 12/23/24 No new complaints except some post op pain. Managed with opiates, stable for discharge from meidcine standpoint. No changes in medications at this time PDMP PDMP Reviewed: Not Reviewed Attestations 2 Medical Necessity Statement*: per admitting Coding Level of Care Code Acute Code for Chg Fwd Diagnoses Status post total left knee replacement using cement Z96.652 Benign essential HTN I10 Hypoglycemia E16.2 Acquired hypothyroidism E03.9 Hypothyroidism type: acquired JESENIA (generalized anxiety disorder) F41.1 Hiatal hernia with gastroesophageal reflux K44.9; K21.9 Vasomotor symptoms due to menopause N95.1 Major depressive disorder, recurrent, mild F33.0
== END 2024-12-23 14:10 | disposition home health service (06) ==
LOC: OBGYN 12:11
PROVIDERS: Physician Assistant; Admitting Provider Student in an Organized Health Care Education/Training Program; PCP Family Medicine; Visit Provider Student in an Organized Health Care Education/Training Program
PROC: 8E0Y0CZ Robotic Assisted Procedure of Lower Extremity, Open Approach (ICD-10-PCS; CPT 27447; principal; 2024-12-22 09:40)
DX: M17.12 Unilateral primary osteoarthritis, left knee (principal); I10 Essential (primary) hypertension; E16.2 Hypoglycemia, unspecified; F41.1 Generalized anxiety disorder; E03.9 Hypothyroidism, unspecified; K44.9 Diaphragmatic hernia without obstruction or gangrene; K21.9 Gastro-esophageal reflux disease without esophagitis; N95.1 Menopausal and female climacteric states; F33.0 Major depressive disorder, recurrent, mild; Z79.82 Long term (current) use of aspirin
CPT/HCPCS: 27447; 20985; 36415; 36416; 51702; 73560; 80048; 82962; 85025; 86850; 86900; 97110; 97116; 97161; 97167; A4216; C1713; C1776; G0378; J0131; J0171; J0690; J1100; J1171; J1885; J2405; J2704; J2795; J3010; J7030; J7120; J9999; L8699

== ENCOUNTER → 2025-01-06 08:33 | Outpatient (BNVA) | payer MEDICARE, MEDICAID, SELFPAY | PROVIDERS: PCP Family Medicine; Visit Provider Physician Assistant | DX: Z96.652 Presence of left artificial knee joint (principal); Z98.890 Other specified postprocedural states | CPT/HCPCS: 73560; 73565; 99024 ==

== ENCOUNTER → 2025-02-17 09:36 | Outpatient (BNVA) | payer MEDICARE, SELFPAY | PROVIDERS: PCP Family Medicine; Visit Provider Physician Assistant | DX: Z96.652 Presence of left artificial knee joint (principal) | CPT/HCPCS: 73560; 73565; 99024 ==

== ENCOUNTER → 2025-04-28 10:47 | Outpatient (BNVA) | payer OTHER, MEDICAID, SELFPAY | PROVIDERS: PCP Family Medicine; Visit Provider Physician Assistant | DX: M17.11 Unilateral primary osteoarthritis, right knee (principal); Z96.652 Presence of left artificial knee joint | CPT/HCPCS: 20610; 73560; 73565; 99213; J3301; J9999 ==

== ENCOUNTER → 2025-06-17 11:00 | Outpatient (BNVA) | payer OTHER, MEDICAID, SELFPAY | PROVIDERS: PCP Family Medicine; Visit Provider Internal Medicine | DX: E03.9 Hypothyroidism, unspecified (principal); R63.4 Abnormal weight loss; E16.A3 Hypoglycemia level 3 | CPT/HCPCS: 99214 ==